=== PATIENT | female | born 1960 | race Caucasian/White ===

== ENCOUNTER 2018-05-13 18:23 | Emergency (ER) | payer SELFPAY ==
[~2018-05-13] VITALS: Ht 172.7 cm; Wt 70.3 kg
[~2018-05-13 18:23] MED LIST: AGM875T PO; SULF-222 PO; TRAM50TA2 PO; TRAZ150T42 PO
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
[2018-05-13] MEDS ORDERED: IBUPROFEN 800 MG (MOTRIN) TAB PO ONE (18:45)
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
[2018-05-13 19:36] VITALS: BP 123/96
== END 2018-05-13 19:36 | disposition home or self-care (01) ==
LOC: ER 18:23
DX: S52.132A Displaced fracture of neck of left radius, initial encounter for closed fracture (principal); F12.10 Cannabis abuse, uncomplicated; Z87.19 Personal history of other diseases of the digestive system; Z88.8 Allergy status to other drugs, medicaments and biological substances; Z88.5 Allergy status to narcotic agent; W18.39XA Other fall on same level, initial encounter
CPT/HCPCS: 73080

== ENCOUNTER 2018-05-16 14:18 | Emergency (ER) | payer SELFPAY ==
[~2018-05-16] VITALS: Ht 172.7 cm; Wt 71.7 kg
--- OUTSIDE RECORDS SUMMARY | 2018-05-16 14:27 | XMS REPORT ---
Author Author DARIEN WOLFE Organization [facility] Address [address] [place] [address] Care Team Providers Care Performing Arts Technicians Name Role Phone DARIEN WOLFE Unavailable PROBLEMS Type Condition ICD9-CM Code UBO50-YG Code Onset Dates Condition Status SNOMED Code Problem Contact dermatitis L25.9 Active 07123729 Problem History of scoliosis Z87.39 Active 996887490 Problem Insomnia G47.00 Active 173892700 Problem Pain in right knee M25.561 Active 78037819 Problem Other chronic pain G89.29 Active 90005858 Problem Routine health maintenance Z00.00 Active 102057445 Problem Screening for diabetes mellitus Z13.1 Active 224840656 Problem Elevated hemoglobin A1c R73.09 Active 840304287 Problem Actinic keratosis L57.0 Active 035349021 Problem Hx of cannabis abuse Z87.898 Active 569075059195057 Problem Diverticulosis K57.90 Active 464460682 Problem Insomnia, unspecified type G47.00 Active 467253363 Problem History of methamphetamine abuse Z87.898 Active 309581407 Problem Nipple discharge N64.52 Active 82985968 Problem Hx of diverticulitis of colon Z87.19 Active 852955555 Problem Fibrocystic breast changes N60.19 Active 37845072 ALLERGIES Unknown Allergies SOCIAL HISTORY No smoking Hx information available PLAN OF CARE VITAL SIGNS MEDICATIONS Unknown Medications RESULTS No Results PROCEDURES No Known procedures IMMUNIZATIONS No Known Immunizations
--- OUTSIDE RECORDS SUMMARY | 2018-05-16 14:27 | XMS REPORT ---
Author Author DARIEN WOLFE Organization [facility] Address [address] [place] [address] Care Team Providers Care Coat Joiner Lockstitch Name Role Phone DARIEN WOLFE Unavailable PROBLEMS Type Condition ICD9-CM Code HEV00-IQ Code Onset Dates Condition Status SNOMED Code Problem Contact dermatitis L25.9 Active 26636070 Problem History of scoliosis Z87.39 Active 185282592 Problem Insomnia G47.00 Active 917663457 Problem Pain in right knee M25.561 Active 21807736 Problem Other chronic pain G89.29 Active 61300557 Problem Routine health maintenance Z00.00 Active 711665231 Problem Screening for diabetes mellitus Z13.1 Active 276269874 Problem Elevated hemoglobin A1c R73.09 Active 912740792 Problem Actinic keratosis L57.0 Active 551993194 Assessment Pain in right knee M25.561 23 Jun, 2016 Active 265891489611493 Problem Hx of cannabis abuse Z87.898 Active 501974186583926 Assessment Elevated LDL cholesterol level E78.0 Jun, Active 013361128 Problem Diverticulosis K57.90 Active 280465482 Problem Insomnia, unspecified type G47.00 Active 686487194 Problem History of methamphetamine abuse Z87.898 Active 631153961 Problem Nipple discharge N64.52 Active 55885833 Problem Hx of diverticulitis of colon Z87.19 Active 614549274 Problem Fibrocystic breast changes N60.19 Active 74138262 ALLERGIES Unknown Allergies SOCIAL HISTORY No smoking Hx information available PLAN OF CARE VITAL SIGNS MEDICATIONS Unknown Medications RESULTS Name Result Date Reference Range A1C 2016-07-18 Hemoglobin A1c 5.9 4.8-5.6 LIPID PANEL 2016-07-18 Cholesterol, Total 188 100-199 Triglycerides 84 0-149 HDL Cholesterol 54 >39 VLDL Cholesterol Gurpreet 17 5-40 LDL Cholesterol Calc 117 0-99 Comment: PROCEDURES Procedure Date Ordered Related Diagnosis Body Site GLYCATED HEMOGLOBIN TEST Jul 18, 2016 LIPID PANEL Jul 18, 2016 VENIPUNCT, ROUTINE* Jul 18, 2016 IMMUNIZATIONS No Known Immunizations
--- OUTSIDE RECORDS SUMMARY | 2018-05-16 14:27 | XMS REPORT ---
Author Author DARIEN WOLFE Organization [facility] Address [address] [place] [address] Care Team Providers Care Marble Setter Name Role Phone YANTEH DARIEN Unavailable PROBLEMS Type Condition ICD9-CM Code SQR10-AN Code Onset Dates Condition Status SNOMED Code Problem Marijuana use, episodic F12.90 Active 057027111 Problem Elevated LDL cholesterol level E78.00 Active 470954056 Problem Elevated hemoglobin A1c R73.09 Active 117407036 Problem Insomnia, unspecified type G47.00 Active 933519001 Problem Other chronic pain G89.29 Active 60773356 Problem Pain in right knee M25.561 Active 40481466 ALLERGIES Substance Reaction Event Type Date Status Opioids - Morphine Analogues Unknown Non Drug Allergy Oct, Active ENCOUNTERS Encounter Location Date Diagnosis [facility] [id number] [place] [address] February, Elevated hemoglobin A1c R73.09 ; Elevated LDL cholesterol level E78.00 ; Insomnia, unspecified type G47.00 ; Pain in right knee M25.561 and Marijuana use, episodic F12.90 [facility] [id number] [place] [address] Oct, Bronchitis J40 ; Elevated hemoglobin A1c R73.09 and Elevated LDL cholesterol level E78.00 [facility] [id number] [place] [address]58[address]90 Jun, Elevated hemoglobin A1c R73.09 and Elevated LDL cholesterol level E78.00 [facility] [id number] [place] [address]35[address]- 1419 Jun, Elevated hemoglobin A1c R73.09 ; Elevated LDL cholesterol level E78.00 and Insomnia, unspecified type G47.00 [facility] [id number] [place] [address] 13257- 4733 Jun, Elevated hemoglobin A1c R73.09 ; Insomnia, unspecified type G47.00 ; Elevated LDL cholesterol level E78.00 and Other chronic pain G89.29 [facility] [address] [address] Jun, [facility] [id number] [place] [address] May, Lower abdominal pain R10.30 and Cystitis N30.90 [facility] [id number] [place] [address]45- [address] Sep, Lipoma of back D17.1 [place] [id number] [place] [address] 19874- 266[address] Sep, Lipoma of back D17.1 ; Insomnia G47.00 ; Pain in right knee M25.561 ; Elevated hemoglobin A1c R73.09 and Elevated LDL cholesterol level E78.00 [facility] [id number] [place] [address] Sep, Sebaceous cyst L72.3 [place] [id number] [place] [address] 67172- [address]207 Sep, [facility] [id number] [place] [address] 28556- 6952 Jul, [place] [id number] [place] [address]- [address] 30 Jun, 2016 [place] [id number] [place] [address] 30275- 57[address] Jun, Pain in right knee M25.561 ; Elevated hemoglobin A1c R73.09 and Elevated LDL cholesterol level E78.0 [facility] [id number] [place] [address] 95998- 2605 Jun, Pain in right knee M25.561 ; Other chronic pain G89.29 ; Elevated hemoglobin A1c R73.09 and Elevated LDL cholesterol level E78.0 [place] [id number] [place] [address]- [address] 14 Mar, 2016 Insomnia, unspecified type G47.00 and Actinic keratosis L57.0 [place] [id number] [place] [address]52- 1232 Jan, [address] [address] Jan, Routine health maintenance Z00.00 ; Screening for diabetes mellitus Z13.1 and History of scoliosis Z87.[address] [address] Dec, Routine health maintenance Z00.00 ; Screening for diabetes mellitus Z13.1 ; History of scoliosis Z87.39 ; Insomnia G47.00 ; Contact dermatitis L25.9 ; Fibrocystic breast changes N60.19 and Nipple discharge N64.52 [place] [id number] [place] [address]- [address] Nov, [place] [id number] [place] [address]273- 9167 Oct, Insomnia, unspecified type G47.00 [place] [id number] [place] [address]179- [address] Aug, Insomnia, unspecified type G47.00 ; History of methamphetamine abuse Z87.898 ; Hx of cannabis abuse Z87.898 ; Diverticulosis K57.90 ; Hx of diverticulitis of colon Z87.19 and Hordeolum eyelid, internal H00.029 [facility] [address] [place] [address]42 [address] Aug, Hordeolum eyelid, internal H00.029 [place] [id number] [place] [address] 24957- 8700 Apr, Lymphadenopathy 785.[address] [address] Apr, Lymphadenopathy 785.6 [facility] [place] [facility] [address] [id number] [place] [address] February, [facility] [place] [facility] [address] [id number] [place] [address] Jan, [facility] [place] [facility] [address] [id number] [place] [address] 9876 Jan, [facility] [place] [facility] [address] [id number] [place] [address] 3499 Jul, [facility] [place] [facility] [address] [id number] [place] [address] Jul, [facility] [place] [facility] [address] [id number] [place] [address] 9559 Jul, [facility] [place] [facility] [address] [id number] [place] [address] 18[address] Jul, [facility] [place] [facility] [address] [id number] [place] [address] Jul, [facility] [place] [facility] [address] [id number] [place] [address] 4247 Jul, [facility] [place] [facility] [address] [id number] [place] [address] Jul, [facility] [place] [facility] [address] [id number] [place] [address] Jul, [facility] [place] [facility] [address] [id number] [place] [address] Jun, [facility] [place] [facility] [address] [id number] [place] [address]- 6035 Jun, [facility] [place] [facility] [address] [id number] [place] [address]- 2482 Jun, [facility] [place] [facility] [address] [id number] [place] [address]- 7408 Jun, [facility] [place] [facility] [address] [id number] [place] [address]- 3926 19 Jun, 2013 [facility] [place] [facility] [address] [id number] [place] [address] 2546 19 Jun, 2013 [facility] [place] [facility] [address] [id number] [place] [address] 2546 Jun, 2013 [facility] [place] [facility] [address] [id number] [place] [address] 2546 Jun, 2013 [facility] [place] [facility] [address] [id number] [place] [address] 2546 16 Jun, 2013 [facility] [place] [facility] [address] [id number] [place] [address]- 3105 Jun, 2013 [facility] [place] [facility] [address] [id number] [place] [address]- 3174 Jun, 2013 [facility] [place] [facility] [address] [id number] [place] [address]- 8742 Jun, 2013 [facility] [place] [facility] [address] [id number] [place] [address]- 8134 May, [facility] [place] [facility] [address] [id number] [place] [address]- 3786 May, [facility] [place] [facility] [address] [id number] [place] [address]- 8830 May, [facility] [place] [facility] [address] [id number] [place] [address] 2546 May, [facility] [place] [facility] [address] [id number] [place] [address]- 2542 May, [facility] [place] [facility] [address] [id number] [place] [address]- 9284 May, [facility] [place] [facility] [address] [id number] [place] [address]- 2542 May, [facility] [place] [facility] [address] [id number] [place] [address]- 2461 May, [facility] [place] [facility] [address] [id number] [place] [address]- 4205 May, [facility] [place] [facility] [address] [id number] [place] [address]- 5074 May, [facility] [place] [facility] [address] [id number] [place] [address]- 2608 May, [facility] [place] [facility] [address] [id number] [place] [address]- 5126 May, [facility] [place] [facility] [address] [id number] [place] [address]- 1998 May, [facility] [place] [facility] [address] [id number] [place] [address]- 5170 May, [facility] [place] [facility] [address] [id number] [place] [address]- 5326 Apr, [facility] [place] [facility] [address] [id number] [place] [address]- 4577 Apr, [facility] [place] [facility] [address] [id number] [place] [address]- 9706 Apr, [facility] [place] [facility] [address] [id number] [place] [address]- 3994 Apr, [facility] [place] [facility] [address] [id number] [place] [address]- 7095 Apr, [facility] [place] [facility] [address] [id number] [place] [address]- 2525 Apr, [facility] [place] [facility] [address] [id number] [place] [address]- 4[address] Apr, [facility] [place] [facility] [address] [id number] [place] [address]- 5283 Apr, [facility] [place] [facility] [address] [id number] [place] [address]- 1795 Apr, [facility] [place] [facility] [address] [id number] [place] [address]- 2546 Apr, [facility] [address] [facility] [id number] [place] [address] 2546 Apr, [facility] [address] [facility] [id number] [place] [address]- 25[address] Dec, [facility] [address] [facility] [id number] [place] [address] 2546 Dec, [facility] [address] [facility] [id number] [place] [address]- [address] Nov, [facility] [address] [facility] [id number] [place] [address]- [address] Nov, IMMUNIZATIONS No Known Immunizations SOCIAL HISTORY Never Assessed REASON FOR VISIT Insomnia follow up, Diabetes follow up isaura song, Congestion with cough x 3 days , denies fever or body aches PLAN OF CARE Activity Details Follow Up 3 Months, prn Reason:CHM VITAL SIGNS Height 69 in 2017-11-05 Weight 155 lbs 2017-11-05 Temperature 98.3 degrees Fahrenheit 2017-11-05 Heart Rate 74 bpm 2017-11-05 Respiratory Rate 20 2017-11-05 Oximetry 97 % 2017-11-05 BMI 22.89 kg/m2 2017-11-05 Blood pressure systolic 116 mmHg 2017-11-05 Blood pressure diastolic 64 mmHg 2017-11-05 MEDICATIONS Medication Instructions Dosage Frequency Start Date End Date Duration Status PredniSONE 20 mg Orally Once a day 1 tablet 24h Oct, Oct, 05 days Active Trazodone HCl 100MG TAKE ONE TABLET BY MOUTH ONCE DAILY AT BEDTIME 90 Active Atorvastatin Calcium 10 mg Orally Once a day, avoid grapefruit juice 1 tablet Jun, 90 days Active Melatonin 10 MG Orally Once a day 1 tablet at bedtime as needed with food 24h Active Triamcinolone Acetonide 0.5 % Externally Twice a day apply small amount to bilat feet twice a day 12h 31 Dec, 2015 Not-Taking ProAir HFA 108 (90 Base) MCG/ACT Inhalation every 6 hrs 2 puffs as needed 6h Oct, 12 months Active Triamcinolone Acetonide 0.1 % Externally Twice a day 1 application to affected area 12h 14 Mar, 2016 Active MetFORMIN HCl ER 500 MG Orally twice a day 1 tablet with evening meal x 7days then one tablet twice daily with meals 12h 07 Jan, 2016 90 days Active Azithromycin 250 MG Orally Once a day 2 tablets on the first day, then 1 tablet daily for 4 days 24h 11 Oct, 2017 Oct, 5 day(s) Active RESULTS Name Result Date Reference Range A1C (IN HOUSE) 2017-11-05 A1C IN HOUSE 5.8 4.3 - 5.6 % Previous A1c 5.8 Lot [id number] Exp date 07/2019 PROCEDURES Procedure Date Ordered Result Body Site GLYCATED HEMOGLOBIN TEST Nov 05, 2017 MEASURE BLOOD OXYGEN LEVEL Nov 05, 2017 INSTRUCTIONS MEDICATIONS ADMINISTERED No Known Medications MEDICAL (GENERAL) HISTORY Type Description Date Medical History diverticulitis Medical History Unspecified myalgia and myositis Medical History Nondependent cannabis abuse, unspecified Medical History Condyloma acuminatum Medical History Anxiety state, unspecified Medical History Unspecified renal failure Medical History History of methamphetamine abuse Medical History Hx of cannabis abuse Surgical History cholecystectomy Surgical History appendectomy Surgical History left ankle ganglion cyst removal Surgical History colonoscopy 2013 Hospitalization History Surgeries only
--- OUTSIDE RECORDS SUMMARY | 2018-05-16 14:28 | XMS REPORT ---
Author Author MOIRA MCGUIRE Organization [facility] Address [address] [place] [address] Care Team Providers Care Human Resources Mgr Name Role Phone MOIRA MCGUIRE Unavailable PROBLEMS Type Condition ICD9-CM Code VHL50-IB Code Onset Dates Condition Status SNOMED Code Problem Insomnia, unspecified type G47.00 Active 573875207 Problem History of scoliosis Z87.39 Active 980927485 Problem Fibrocystic breast changes N60.19 Active 54332951 Problem Elevated LDL cholesterol level E78.00 Active 382465326 Problem Elevated hemoglobin A1c R73.09 Active 678815449 Problem Actinic keratosis L57.0 Active 636798445 Problem Contact dermatitis L25.9 Active 64549263 Problem Other chronic pain G89.29 Active 77146233 Problem Pain in right knee M25.561 Active 58205560 ALLERGIES Substance Reaction Event Type Date Status Opioids - Morphine Analogues Unknown Non Drug Allergy May, Active ENCOUNTERS Encounter Location Date Diagnosis [place] [id number] [place] [address] 36980- 0253 February, [facility] [address] [place] [id number] [place] [address] 80025- 5056 Oct, Bronchitis J40 ; Elevated hemoglobin A1c R73.09 and Elevated LDL cholesterol level E78.00 [facility] [address] [place] [address] 83201- 1005 Jun, Elevated hemoglobin A1c R73.09 and Elevated LDL cholesterol level E78.00 [place] [address] [place] [id number] [place] [address] 89148- 6480 Jun, Elevated hemoglobin A1c R73.09 ; Elevated LDL cholesterol level E78.00 and Insomnia, unspecified type G47.00 [facility] [address] [place] [id number] [place] [address] 65561- 8942 Jun, Elevated hemoglobin A1c R73.09 ; Insomnia, unspecified type G47.00 ; Elevated LDL cholesterol level E78.00 and Other chronic pain G89.29 [place] [address] [place] [id number] [place] [address] 16178- 8789 Jun, [facility] [address] [place] [id number] [place] [address] 77142 -7922 May, Lower abdominal pain R10.30 and Cystitis N30.90 [place] [address] [place] [id number] [place] [address] 69348- 3257 Sep, Lipoma of back D17.1 [place] [address] [place] [id number] [place] [address] 47114- 3747 Sep, Lipoma of back D17.1 ; Insomnia G47.00 ; Pain in right knee M25.561 ; Elevated hemoglobin A1c R73.09 and Elevated LDL cholesterol level E78.00 [facility] [address] [id number] [place] [address] 32866 -9397 Sep, Sebaceous cyst L72.3 [place] [address] [place] [id number] [place] [address] 76839- 9985 Sep, [place] [address] [place] [id number] [place] [address] 56618- 0580 Jul, [place] [address] [place] [id number] [place] [address] 71457- 3066 Jun, [place] [address] [place] [id number] [place] [address] 83084- 5563 Jun, Pain in right knee M25.561 ; Elevated hemoglobin A1c R73.09 and Elevated LDL cholesterol level E78.0 [place] [address] [place] [address] 29762- 2312 Jun, Pain in right knee M25.561 ; Other chronic pain G89.29 ; Elevated hemoglobin A1c R73.09 and Elevated LDL cholesterol level E78.0 [place] [address] [place] [id number] [place] [address] 17395- 9727 14 Mar, 2016 Insomnia, unspecified type G47.00 and Actinic keratosis L57.0 [place] [id number] [place] [address] 25838- 1867 Jan, [address] 66251- 7146 Jan, Routine health maintenance Z00.00 ; Screening for diabetes mellitus Z13.1 and History of scoliosis Z87.[address] 24711- 8140 Dec, Routine health maintenance Z00.00 ; Screening for diabetes mellitus Z13.1 ; History of scoliosis Z87.39 ; Insomnia G47.00 ; Contact dermatitis L25.9 ; Fibrocystic breast changes N60.19 and Nipple discharge N64.[address] 67490- 9716 Nov, [address] 78272- 3500 Oct, Insomnia, unspecified type G47.00 [place] [id number] [place] [address] 13057- 6261 Aug, Insomnia, unspecified type G47.00 ; History of methamphetamine abuse Z87.898 ; Hx of cannabis abuse Z87.898 ; Diverticulosis K57.90 ; Hx of diverticulitis of colon Z87.19 and Hordeolum eyelid, internal H00.029 [facility] [address] [place] [address] 64514 -1791 Aug, Hordeolum eyelid, internal H00.029 [place] [address] [place] [id number] [place] [address] 66025- 6569 Apr, Lymphadenopathy 785.[address] 84787- 7878 Apr, Lymphadenopathy 785.6 [facility] [place] [facility] [address] [id number] [place] [address]- 0580 February, [facility] [place] [facility] [address] [id number] [place] [address]- 2886 14 Jan, 2015 [facility] [place] [facility] [address] [id number] [place] [address]- 8346 Jan, [facility] [place] [facility] [address] [id number] [place] [address]- 0033 Jul, [facility] [place] [facility] [address] [id number] [place] [address]- 3926 Jul, [facility] [place] [facility] [address] [id number] [place] [address]- 2117 Jul, [facility] [place] [facility] [address] [id number] [place] [address]- 5916 Jul, [facility] [place] [facility] [address] [id number] [place] [address]- 1310 Jul, [facility] [place] [facility] [address] [id number] [place] [address]- 0906 Jul, [facility] [place] [facility] [address] [id number] [address]- 3774 Jul, [facility] [place] [facility] [address] [id number] [place] [address]- 4260 Jul, [facility] [place] [facility] [address] [id number] [address]- 8665 Jun, [facility] [place] [facility] [address] [id number] [place] [address]- 5972 Jun, [facility] [place] [facility] [address] [id number] [place] [address]- 3263 Jun, [facility] [place] [facility] [address] [id number] [place] [address]- 8704 Jun, [facility] [place] [facility] [address] [id number] [place] [address]- 3344 19 Jun, 2013 [facility] [place] [facility] [address] [id number] [place] [address]- 0886 19 Jun, 2013 [facility] [place] [facility] [address] [id number] [place] [address]- 6356 Jun, 2013 [facility] [place] [facility] [address] [id number] [place] [address]- 2286 Jun, 2013 [facility] [place] [facility] [address] [id number] [place] [address]- 8306 16 Jun, 2013 [facility] [place] [facility] [address] [id number] [place] [address]- 3304 Jun, 2013 [facility] [place] [facility] [address] [id number] [place] [address]- 0609 Jun, 2013 [facility] [place] [facility] [address] [id number] [place] [address]- 3467 Jun, 2013 [facility] [place] [facility] [address] [id number] [place] [address]- 1618 May, [facility] [place] [facility] [address] [id number] [place] [address]- 8061 May, [facility] [place] [facility] [address] [id number] [place] [address]- 8910 May, [facility] [place] [facility] [address] [id number] [place] [address]- 1309 May, [facility] [place] [facility] [address] [id number] [place] [address]- 2544 May, [facility] [place] [facility] [address] [id number] [place] [address]- 6287 May, [facility] [place] [facility] [address] [id number] [place] [address]- 6402 May, [facility] [place] [facility] [address] [id number] [place] [address]- 5460 May, [facility] [place] [facility] [address] [id number] [place] [address]- 8818 May, [facility] [place] [facility] [address] [id number] [place] [address]- 0358 May, [facility] [place] [facility] [address] [id number] [place] [address]- 2765 May, [facility] [place] [facility] [address] [id number] [place] [address]- 3151 May, [facility] [place] [facility] [address] [id number] [place] [address]- 8945 May, [facility] [place] [facility] [address] [id number] [place] [address]- 2114 May, [facility] [place] [facility] [address] [id number] [place] [address]- 7458 Apr, [facility] [place] [facility] [address] [id number] [place] [address]- 5722 Apr, [facility] [place] [facility] [address] [id number] [place] [address]- 6357 Apr, [facility] [place] [facility] [address] [id number] [place] [address]- 1428 Apr, [facility] [place] [facility] [address] [id number] [place] [address]- 4012 Apr, [facility] [place] [facility] [address] [id number] [place] [address]- 3512 Apr, [facility] [place] [facility] [address] [id number] [place] [address]- 5947 Apr, [facility] [place] [facility] [address] [id number] [place] [address]- 3466 Apr, [facility] [place] [facility] [address] [id number] [place]657 Apr, [facility] [place] [facility] [address] [id number] [place] [address]- 9635 Apr, [facility] [address] [facility] [id number] [place] [address]- 7738 Apr, [facility] [address] [facility] [id number], [place] [address]- 0036 Dec, [facility] [address] [facility] [id number][place] [address]- 7216 Dec, [facility] [address] [facility] [id number][place] [address]- 8226 Nov, [facility] [address] [facility] [id number][place] [address]- 5866 Nov, IMMUNIZATIONS No Known Immunizations SOCIAL HISTORY Never Assessed REASON FOR VISIT Possible UTI. Patient states she is having pain in her bladder. JAKUB Varela. PLAN OF CARE Activity Details Follow Up prn Reason: VITAL SIGNS Height 69 in 2017-06-19 Weight 153 lbs 2017-06-19 Temperature 98.1 degrees Fahrenheit 2017-06-19 Heart Rate 72 bpm 2017-06-19 Respiratory Rate 16 2017-06-19 BMI 22.59 kg/m2 2017-06-19 Blood pressure systolic 122 mmHg 2017-06-19 Blood pressure diastolic 74 mmHg 2017-06-19 MEDICATIONS Medication Instructions Dosage Frequency Start Date End Date Duration Status Triamcinolone Acetonide 0.1 % Externally Twice a day 1 application to affected area 12h Mar, Active Bactrim DS 800-160 MG Orally 2 times a day 1 tablet May,Jun 07 days Active Trazodone HCl 100MG TAKE ONE TABLET BY MOUTH ONCE DAILY AT BEDTIME 90 Active Atorvastatin Calcium 10 mg Orally Once a day, avoid grapefruit juice 1 tablet Jun, 90 days Active MetFORMIN HCl ER 500 MG Orally twice a day 1 tablet with evening meal x 7days then one tablet twice daily with meals h Jan, 90 days Active trazodone 100 MG orally Once a day at bedtime 1 tablet Apr, Jun, 90 days Active Melatonin 10 MG Orally Once a day 1 tablet at bedtime as needed with food 24h Active RESULTS No Results PROCEDURES Procedure Date Ordered Result Body Site URINALYSIS, AUTO, W/O SCOPE Jun 19, 2017 INSTRUCTIONS MEDICATIONS ADMINISTERED No Known Medications [...]
--- OUTSIDE RECORDS SUMMARY | 2018-05-16 14:28 | XMS REPORT ---
Author Author DARIEN WOLFE Organization [facility] Address [address] [place] [address] Care Team Providers Care Glass Carrier Name Role Phone DARIEN WOLFE Unavailable PROBLEMS Type Condition ICD9-CM Code BKB16-BA Code Onset Dates Condition Status SNOMED Code Problem History of scoliosis Z87.39 Active 087376491 Problem Insomnia G47.00 Active 224699082 Problem Contact dermatitis L25.9 Active 20470614 Problem Pain in right knee M25.561 Active 56846355 Problem Other chronic pain G89.29 Active 62068047 Problem Screening for diabetes mellitus Z13.1 Active 454938703 Problem Nipple discharge N64.52 Active 30078469 Problem Elevated hemoglobin A1c R73.09 Active 972927910 Problem Actinic keratosis L57.0 Active 067307844 Problem Insomnia, unspecified type G47.00 Active 616194452 Problem Hx of cannabis abuse Z87.898 Active 920988243886225 Problem Hx of diverticulitis of colon Z87.19 Active 391446622 Problem Diverticulosis K57.90 Active 209036400 Problem Fibrocystic breast changes N60.19 Active 77311408 Problem History of methamphetamine abuse Z87.898 Active 216071376 Problem Routine health maintenance Z00.00 Active 295675118 ALLERGIES No Known Allergies SOCIAL HISTORY No smoking Hx information available PLAN OF CARE VITAL SIGNS MEDICATIONS No Known Medications RESULTS No Results PROCEDURES Procedure Date Ordered Related Diagnosis Body Site SUTURE REMOVAL 2016-10-21 N/A REMOV SUTS; NOT WHO CLOS WND Oct 21, 2016 IMMUNIZATIONS No Known Immunizations
--- OUTSIDE RECORDS SUMMARY | 2018-05-16 14:28 | XMS REPORT ---
Author Author DARIEN WOLFE Organization [facility] Address [address] [place] [address] Care Team Providers Care [employer] Librarian Name Role Phone DARIEN WOLFE Unavailable PROBLEMS Type Condition ICD9-CM Code CTB11-KC Code Onset Dates Condition Status SNOMED Code Problem Insomnia, unspecified type G47.00 Active 598639883 Problem History of scoliosis Z87.39 Active 365413403 Problem Fibrocystic breast changes N60.19 Active 14906151 Problem Elevated LDL cholesterol level E78.00 Active 605545952 Problem Elevated hemoglobin A1c R73.09 Active 623632347 Problem Actinic keratosis L57.0 Active 559610541 Problem Contact dermatitis L25.9 Active 28782211 Problem Other chronic pain G89.29 Active 26787924 Problem Pain in right knee M25.561 Active 46345227 ALLERGIES No Information ENCOUNTERS Encounter Location Date Diagnosis [place] [id number] [address] February, [facility] [address] [place] [id number] [place] [address] 03486- 7941 Oct, Bronchitis J40 ; Elevated hemoglobin A1c R73.09 and Elevated LDL cholesterol level E78.00 [place] [address] [place] [id number] [place] [address] 21400- 2132 Jun, Elevated hemoglobin A1c R73.09 and Elevated LDL cholesterol level E78.00 [place] [address] [place] [id number] [place] [address] 29413- 6057 Jun, Elevated hemoglobin A1c R73.09 ; Elevated LDL cholesterol level E78.00 and Insomnia, unspecified type G47.00 [facility] [address] [place] [address] 31782- 9352 Jun, Elevated hemoglobin A1c R73.09 ; Insomnia, unspecified type G47.00 ; Elevated LDL cholesterol level E78.00 and Other chronic pain G89.29 [place] [address] [place] [id number] [place] [address] 07861- 2204 Jun, [facility] [address] [place] [id number] [place] [address] 56273 -4585 May, Lower abdominal pain R10.30 and Cystitis N30.90 [place] [address] [place] [id number] [place] [address] 37742- 8276 Sep, Lipoma of back D17.1 [place] [address] [place] [id number] [place] [address] 47824- 8130 Sep, Lipoma of back D17.1 ; Insomnia G47.00 ; Pain in right knee M25.561 ; Elevated hemoglobin A1c R73.09 and Elevated LDL cholesterol level E78.00 [facility] [address] [place] [id number] [place] [address] 83356 -6199 Sep, Sebaceous cyst L72.3 [place] [address] [place] [id number] [place] [address] 25469- 9296 Sep, [place] [address] [place] [id number] [place] [address] 21200- 7494 Jul, [place] [address] [place] [id number] [place] [address] 11768- 0515 Jun, [place] [address] [place] [id number] [place] [address] 62583- 5226 Jun, Pain in right knee M25.561 ; Elevated hemoglobin A1c R73.09 and Elevated LDL cholesterol level E78.0 [place] [address] [place] [id number] [place] [address] 34842- 3825 Jun, Pain in right knee M25.561 ; Other chronic pain G89.29 ; Elevated hemoglobin A1c R73.09 and Elevated LDL cholesterol level E78.0 [place] [address] [place] [id number] [place] [address] 69027- 5204 Mar, Insomnia, unspecified type G47.00 and Actinic keratosis L57.[address] [address]- 7525 Jan, [address] 72789152- 4433 Jan, Routine health maintenance Z00.00 ; Screening for diabetes mellitus Z13.1 and History of scoliosis Z87.39 [place] [address] 94896- 1366 Dec, Routine health maintenance Z00.00 ; Screening for diabetes mellitus Z13.1 ; History of scoliosis Z87.39 ; Insomnia G47.00 ; Contact dermatitis L25.9 ; Fibrocystic breast changes N60.19 and Nipple discharge N64.[address] 45398- 3289 Nov, [address] 53396- 5002 Oct, Insomnia, unspecified type G47.[address] 48548- 3481 Aug, Insomnia, unspecified type G47.00 ; History of methamphetamine abuse Z87.898 ; Hx of cannabis abuse Z87.898 ; Diverticulosis K57.90 ; Hx of diverticulitis of colon Z87.19 and Hordeolum eyelid, internal H00.029 [facility] [address] [place] [address] 81630 -9829 Aug, Hordeolum eyelid, internal H00.029 [place] [id number] [place] [address] 86877- 5482 Apr, Lymphadenopathy 785.[address] 28804- 0014 Apr, Lymphadenopathy 785.[address] [place] [address]- 7346 February, [facility] [place] [facility] [address] [id number] [place] [address]- 2931 14 Jan, 2015 [facility] [place] [facility] [address] [id number] [place] [address]- 8454 13 Jan, 2015 [facility] [place] [facility] [address] [id number] [place] [address]- 0520 Jul, [facility] [place] [facility] [address] [id number] [place] [address]- 3792 Jul, [facility] [place] [facility] [address] [id number] [place] [address]- 4246 Jul, [facility] [place] [facility] [address] [id number] [place] [address]- 2329 Jul, [facility] [place] [facility] [address] [id number] [place] [address]- 1843 Jul, [facility] [place] [facility] [address] [id number] [place] [address]- 3012 Jul, [facility] [place] [facility] [address] [id number] [place] [address]- 5821 Jul, [facility] [place] [facility] [address] [id number] [place] [address]- 5963 Jul, [facility] [place] [facility] [address] [id number] [place] [address]- 7918 22 Jun, 2013 [facility] [place] [facility] [address] [id number] [place] [address]- 2903 22 Jun, 2013 [facility] [place] [facility] [address] [id number] [place] [address]- 7627 22 Jun, 2013 [facility] [place] [facility] [address] [id number] [place] [address]- 6373 22 Jun, 2013 [facility] [place] [facility] [address] [id number] [place] [address]- 9764 19 Jun, 2013 [facility] [place] [facility] [address] [id number] [place] [address] 2546 19 Jun, 2013 [facility] [place] [facility] [address] [id number] [place] [address] 2546 Jun, 2013 [facility] [place] [facility] [address] [id number] [place] [address] 2546 Jun, 2013 [facility] [place] [facility] [address] [id number] [place] [address] 2546 16 Jun, 2013 [facility] [place] [facility] [address] [id number] [place] [address] 2546 16 Jun, 2013 [facility] [place] [facility] [address] [id number] [place] [address]- 9916 Jun, 2013 [facility] [place] [facility] [address] [id number] [place] [address]- 4945 Jun, 2013 [facility] [place] [facility] [address] [id number] [place] [address]- 1372 May, [facility] [place] [facility] [address] [id number] [place] [address]- 4200 May, [facility] [place] [facility] [address] [id number] [place] [address]- 1269 May, [facility] [place] [facility] [address] [id number] [place] [address] 2544 May, [facility] [place] [facility] [address] [id number] [place] [address]- 2548 May, [facility] [place] [facility] [address] [id number] [place] [address] 2541 May, [facility] [place] [facility] [address] [id number] [place] [address] 2546 May, [facility] [place] [facility] [address] [id number] [place] [address]- 2549 May, [facility] [place] [facility] [address] [id number] [place] [address]- 2496 May, [facility] [place] [facility] [address] [id number] [place] [address]- 6599 May, [facility] [place] [facility] [address] [id number] [place] [address]- 2984 May, [facility] [place] [facility] [address] [id number] [place] [address]- 9730 May, [facility] [place] [facility] [address] [id number] [place] [address]- 9234 May, [facility] [place] [facility] [address] [id number] [place] [address]- 6142 May, [facility] [place] [facility] [address] [id number] [place] [address]- 5350 Apr, [facility] [place] [facility] [address] [id number] [place] [address]- 5762 Apr, [facility] [place] [facility] [address] [id number] [place] [address]- 4498 Apr, [facility] [place] [facility] [address] [id number] [place] [address]- 5380 Apr, [facility] [place] [facility] [address] [id number] [place] [address]- 4542 Apr, [facility] [place] [facility] [address] [id number] [place] [address]- 5174 Apr, [facility] [place] [facility] [address] [id number] [place] [address]- 2732 Apr, [facility] [place] [facility] [address] [id number] [place] [address]- 2498 Apr, [facility] [place] [facility] [address] [id number] [place] [address]- 2855 Apr, [facility] [place] [facility] [address] [id number] [place] [address] Apr, [facility] [place] [facility] [address] [id number] [place] [address] Apr, [facility] [address] [facility] [id number] [address] Dec, [facility] [address] [facility] [id number] [address] Dec, [facility] [address] [facility] [id number] [address] Nov, [facility] [address] [facility] [id number] [address] Nov, IMMUNIZATIONS No Known Immunizations SOCIAL HISTORY Never Assessed REASON FOR VISIT Refill request/Appt Scheduled PLAN OF CARE VITAL SIGNS MEDICATIONS Unknown Medications RESULTS No Results PROCEDURES No Known procedures INSTRUCTIONS MEDICATIONS ADMINISTERED No Known Medications MEDICAL [...]
--- OUTSIDE RECORDS SUMMARY | 2018-05-16 14:28 | XMS REPORT ---
Author Author DARIEN WOLFE Organization [employer] Address Unknown Phone Unavailable Care Team Providers Care Detective Supervisor Name Role Phone DARIEN WOLFE CP Unavailable Allergies No Known Allergies Problems Problem Type Condition Code Onset Dates Condition Status Problem Fibrocystic breast changes N60.19 Active Problem Insomnia G47.00 Active Problem Contact dermatitis L25.9 Active Problem Other chronic pain G89.29 Active Problem Elevated hemoglobin A1c R73.09 Active Problem Pain in right knee M25.561 Active Problem Screening for diabetes mellitus Z13.1 Active Problem History of scoliosis Z87.39 Active Problem Actinic keratosis L57.0 Active Problem Routine health maintenance Z00.00 Active Problem Hx of diverticulitis of colon Z87.19 Active Problem Diverticulosis K57.90 Active Problem Hx of cannabis abuse Z87.898 Active Problem Insomnia, unspecified type G47.00 Active Problem History of methamphetamine abuse Z87.898 Active Problem Nipple discharge N64.52 Active Medications Medication Code System Code Instructions Start Date End Date Status Dosage Atorvastatin Calcium [facility] [address]-64 10 mg Orally Once a day, avoid grapefruit juice Jul 25, 2016 1 tablet Results No Known Results Summary Purpose [employer] Submission
--- OUTSIDE RECORDS SUMMARY | 2018-05-16 14:28 | XMS REPORT ---
Author Author DARIEN WOLFE Organization [facility] Address [address] [place] [address] Care Team Providers Care Speech Scientist Name Role Phone DARIEN WOLFE Unavailable PROBLEMS Type Condition ICD9-CM Code [id number] Code Onset Dates Condition Status SNOMED Code Problem Contact dermatitis L25.9 Active 03328921 Problem History of scoliosis Z87.39 Active 469159963 Problem Insomnia G47.00 Active 194305212 Problem Pain in right knee M25.561 Active 05537607 Problem Other chronic pain G89.29 Active 06720456 Problem Routine health maintenance Z00.00 Active 133191909 Problem Screening for diabetes mellitus Z13.1 Active 211196184 Problem Elevated hemoglobin A1c R73.09 Active 924927363 Problem Actinic keratosis L57.0 Active 579610890 Problem Hx of cannabis abuse Z87.898 Active 609419893477045 Problem Diverticulosis K57.90 Active 555096768 Problem Insomnia, unspecified type G47.00 Active 416018768 Problem History of methamphetamine abuse Z87.898 Active 379486435 Problem Nipple discharge N64.52 Active 31511175 Problem Hx of diverticulitis of colon Z87.19 Active 047035410 Problem Fibrocystic breast changes N60.19 Active 10369389 ALLERGIES Substance Reaction Event Type Date Status Opioids - Morphine Analogues Unknown Non Drug Allergy Sep, Active SOCIAL HISTORY No smoking Hx information available PLAN OF CARE Activity Details Follow Up 2 - 3 Days, prn Reason: VITAL SIGNS Height 69 in 2016-10-17 Weight 171.5 lbs 2016-10-17 Temperature 97.8 degrees Fahrenheit 2016-10-17 Heart Rate 64 bpm 2016-10-17 Respiratory Rate 18 2016-10-17 BMI 25.32 kg/m2 2016-10-17 Blood pressure systolic 119 mmHg 2016-10-17 Blood pressure diastolic 76 mmHg 2016-10-17 MEDICATIONS Medication Instructions Dosage Frequency Start Date End Date Duration Status Triamcinolone Acetonide 0.1 % Externally Twice a day 1 application to affected area 12h 14 Mar, 2016 Active Tramadol HCl 50 mg Orally every 6 hrs 1 tablet as needed 6h Sep, Oct, 28 days Active Trazodone HCl 100MG TAKE ONE TABLET BY MOUTH ONCE DAILY AT BEDTIME 90 Active Atorvastatin Calcium 10 mg Orally Once a day, avoid grapefruit juice 1 tablet Jun, 90 days Active MetFORMIN HCl ER 500 MG Orally twice a day 1 tablet with evening meal x 7days then one tablet twice daily with meals 12h 07 Jan, 2016 90 days Active trazodone 100 MG orally Once a day at bedtime 1 tablet Apr, Jun, 90 days Active Melatonin 10 MG Orally Once a day 1 tablet at bedtime as needed with food 24h Active RESULTS No Results PROCEDURES Procedure Date Ordered Related Diagnosis Body Site EXC BENIGN LEISON <0.5 cm (specify location) 2016-10-17 N/A Office Visit, Est Pt., Level 3 Oct 17, 2016 EXC TR-EXT B9 GIULIANA 0.5 < CM Oct 17, 2016 IMMUNIZATIONS No Known Immunizations
--- OUTSIDE RECORDS SUMMARY | 2018-05-16 14:28 | XMS REPORT ---
Author Author DARIEN WOLFE Organization [facility] Address [address] [place] [address] Care Team Providers Care Eyelet Cutter Name Role Phone DARIEN WOLFE Unavailable PROBLEMS Type Condition ICD9-CM Code PPI20-EC Code Onset Dates Condition Status SNOMED Code Problem Insomnia, unspecified type G47.00 Active 161973319 Problem History of scoliosis Z87.39 Active 322556617 Problem Fibrocystic breast changes N60.19 Active 10900076 Problem Elevated LDL cholesterol level E78.00 Active 852899057 Problem Elevated hemoglobin A1c R73.09 Active 376451346 Problem Actinic keratosis L57.0 Active 433224423 Problem Contact dermatitis L25.9 Active 57712148 Problem Other chronic pain G89.29 Active 88376590 Problem Pain in right knee M25.561 Active 55488486 ALLERGIES No Information ENCOUNTERS Encounter Location Date Diagnosis [place] [id number] [address] February, [facility] [address] [place] [id number] [place] [address] Oct, Bronchitis J40 ; Elevated hemoglobin A1c R73.09 and Elevated LDL cholesterol level E78.00 [place] [address] [place] [id number] [place] [address] Jun, Elevated hemoglobin A1c R73.09 and Elevated LDL cholesterol level E78.00 [place] [address] [place] [id number] [place] [address] Jun, Elevated hemoglobin A1c R73.09 ; Elevated LDL cholesterol level E78.00 and Insomnia, unspecified type G47.00 [facility] [address] [place] [address] Jun, Elevated hemoglobin A1c R73.09 ; Insomnia, unspecified type G47.00 ; Elevated LDL cholesterol level E78.00 and Other chronic pain G89.29 [place] [address] [place] [id number] [place] [address] Jun, [facility] [address] [id number] [place] [address] May, Lower abdominal pain R10.30 and Cystitis N30.90 [place] [address] [place] [id number] [place] [address] Sep, Lipoma of back D17.1 [place] [address] [place] [id number] [place] [address] Sep, Lipoma of back D17.1 ; Insomnia G47.00 ; Pain in right knee M25.561 ; Elevated hemoglobin A1c R73.09 and Elevated LDL cholesterol level E78.00 [facility] IN [facility] [address] [id number] [place] [address] Sep, Sebaceous cyst L72.3 [place] [address] [place] [id number] [place] [address] Sep, [place] [address] [place] [id number] [place] [address] Jul, [place] [address] [place] [id number] [place] [address] Jun, [place] [address] [place] [id number] [place] [address] Jun, Pain in right knee M25.561 ; Elevated hemoglobin A1c R73.09 and Elevated LDL cholesterol level E78.0 [place] [address] [place] [id number] [place] [address] Jun, Pain in right knee M25.561 ; Other chronic pain G89.29 ; Elevated hemoglobin A1c R73.09 and Elevated LDL cholesterol level E78.0 [place] [address] [place] [id number] [place] [address] Mar, Insomnia, unspecified type G47.00 and Actinic keratosis L57.[address] [address] Jan, [address] [id number] Jan, Routine health maintenance Z00.00 ; Screening for diabetes mellitus Z13.1 and History of scoliosis Z87.39 [place] [address] [address] Dec, Routine health maintenance Z00.00 ; Screening for diabetes mellitus Z13.1 ; History of scoliosis Z87.39 ; Insomnia G47.00 ; Contact dermatitis L25.9 ; Fibrocystic breast changes N60.19 and Nipple discharge N64.[address] [address] Nov, [address] [address] Oct, Insomnia, unspecified type G47.[address] [address] Aug, Insomnia, unspecified type G47.00 ; History of methamphetamine abuse Z87.898 ; Hx of cannabis abuse Z87.898 ; Diverticulosis K57.90 ; Hx of diverticulitis of colon Z87.19 and Hordeolum eyelid, internal H00.029 [facility] IN [facility] [id number] [place] [address] Aug, Hordeolum eyelid, internal H00.029 [place] [id number] [place] [address] Apr, Lymphadenopathy 785.[address] [address] Apr, Lymphadenopathy [address]85.[address] [place] [address] February, [facility] [place] [facility] [address] [id number] [place] [address] 14 Jan, 2015 [facility] [place] [facility] [address] [id number] [place] [address]- [address] 13 Jan, 2015 [facility] [place] [facility] [address] [id number] [place] [address] Jul, [facility] [place] [facility] [address] [id number] [place] [address] Jul, [facility] [place] [facility] [address] [id number] [place] [address] Jul, [facility] [place] [facility] [address] [id number] [place] [address] Jul, [facility] [place] [facility] [address] [id number] [place] [address] Jul, [facility] [place] [facility] [address] [id number] [place] [address] Jul, [facility] [place] [facility] [address] [id number] [place] [address] Jul, [facility] [place] [facility] [address] [id number] [place] [address]- [address] Jul, [facility] [place] [facility] [address] [id number] [place] [address]- 9[address] 22 Jun, 2013 [facility] [place] [facility] [address] [id number] [place] [address]- [address] 22 Jun, 2013 [facility] [place] [facility] [address] [id number] [place] [address]- 9761 22 Jun, 2013 [facility] [place] [facility] [address] [id number] [place] [address]- 7978 22 Jun, 2013 [facility] [place] [facility] [address] [id number] [place] [address]- [address] 19 Jun, 2013 [facility] [place] [facility] [address] [id number] [place] [address] 2546 19 Jun, 2013 [facility] [place] [facility] [address] [id number] [place] [address] 2546 Jun, 2013 [facility] [place] [facility] [address] [id number] [place] [address] 2546 Jun, 2013 [facility] [place] [facility] [address] [id number] [place] [address] 2546 16 Jun, 2013 [facility] [place] [facility] [address] [id number] [place] [address] 2546 16 Jun, 2013 [facility] [place] [facility] [address] [id number] [place] [address]- 2846 Jun, 2013 [facility] [place] [facility] [address] [id number] [place] [address]- 95[address] Jun, 2013 [facility] [place] [facility] [address] [id number] [place] [address]- 3[address] May, [facility] [place] [facility] [address] [id number] [place] [address]- [address] May, [facility] [place] [facility] [address] [id number] [place] [address]- 9192 May, [facility] [place] [facility] [address] [id number] [place] [address] 2542 May, [facility] [place] [facility] [address] [id number] [place] [address]- 2544 May, [facility] [place] [facility] [address] [id number] [place] [address] 2549 May, [facility] [place] [facility] [address] [id number] [place] [address] 2546 May, [facility] [place] [facility] [address] [id number] [place] [address]- 25[address] May, [facility] [place] [facility] [address] [id number] [place] [address]- 48[address] May, [facility] [place] [facility] [address] [id number] [place] [address]- 6[address] May, [facility] [place] [facility] [address] [id number] [place] [address]- [address] May, [facility] [place] [facility] [address] [id number] [place] [address]- 8[address] May, [facility] [place] [facility] [address] [id number] [place] [address]- 39[address] May, [facility] [place] [facility] [address] [id number] [place] [address]- 8674 May, [facility] [place] [facility] [address] [id number] [place] [address]- 8[address] Apr, [facility] [place] [facility] [address] [id number] [place] [address]- 7267 Apr, [facility] [place] [facility] [address] [id number] [place] [address]- 8[address] Apr, [facility] [place] [facility] [address] [id number] [place] [address]- 40[address] Apr, [facility] [place] [facility] [address] [id number] [place] [address]- 4089 Apr, [facility] [place] [facility] [address] [id number] [place] [address]- 6[address] Apr, [facility] [place] [facility] [address] [id number] [place] [address]- 6779 Apr, [facility] [place] [facility] [address] [id number] [place] [address]- 9447 Apr, [facility] [place] [facility] [address] [id number] [place] [address]- 2835 Apr, [facility] [place] [facility] [address] [id number] [place] [address]- 9[address] Apr, [facility] [place] [facility] [address] [id number] [place] [address]- [address] Apr, [facility] [address] [facility] [id number] [place] [address]- [address] Dec, [facility] [address] [facility] [id number], [place] [address] Dec, [facility] [address] [facility] [id number], [place] [address] Nov, [facility] [address] [facility] [id number], [place] [address] Nov, IMMUNIZATIONS No Known Immunizations SOCIAL HISTORY Never Assessed REASON FOR VISIT Lab (walk-in) PLAN OF CARE VITAL SIGNS MEDICATIONS Unknown Medications RESULTS No Results PROCEDURES Procedure Date Ordered Result Body Site COMPREHEN METABOLIC PANEL Jul 07, 2017 Hemoglobin Test Send Out 0 dollar Jul 07, 2017 LIPID PANEL Jul 07, 2017 COMPLETE CBC W/AUTO DIFF WBC Jul 07, 2017 VENIPUNCT, ROUTINE* Jul 07, 2017 ASSAY THYROID STIM HORMONE Jul 07, 2017 INSTRUCTIONS MEDICATIONS ADMINISTERED No Known Medications [...]
--- OUTSIDE RECORDS SUMMARY | 2018-05-16 14:28 | XMS REPORT ---
Author Author XIAO JONES [employer] Address Unknown Phone Unavailable Care Team Providers Care Package Liner Name Role Phone XIAO JONES CP Unavailable Allergies, Adverse Reactions, Alerts Substance Reaction Event Type Opioids - Morphine Analogues Info Not Available Non Drug Allergy Problems Problem Type Condition Code Onset Dates Condition Status Assessment Hx of diverticulitis of colon Z87.19 Active Assessment Hx of cannabis abuse Z87.898 Active Assessment Diverticulosis K57.90 Active Assessment Hordeolum eyelid, internal H00.029 Active Problem Diverticulosis K57.90 Active Problem Hx of diverticulitis of colon Z87.19 Active Problem Insomnia, unspecified type G47.00 Active Assessment Insomnia, unspecified type G47.00 Active Assessment History of methamphetamine abuse Z87.898 Active Problem History of methamphetamine abuse Z87.898 Active Problem Hx of cannabis abuse Z87.898 Active Medications Medication Code System Code Instructions Start Date End Date Status Dosage Erythromycin [facility] [address]-72 0.5 Ophthalmic 4 times a day Sep 18, 2015 Oct 02, 2015 1 application trazodone [facility] [address]-90 100 mg orally Once a day April 25, 2014Oct take 1 tablet by Oral route 1 time per day after meals at bedtime Procedures Procedure Coding System Code Date Office Visit, Est Pt., Level 3 CPT-4 03077 Sep 18, 2015 Vital Signs Date/Time: Sep 18, 2015 Temperature 98.0 F Weight 191.0 lbs Height 69 in BMI 28.20 Index Blood Pressure Diastolic 76 mmHg Blood Pressure Systolic 115 mmHg Cardiac Monitoring Heart Rate 56 bpm Results No Known Results Summary Purpose [employer] Submission
--- OUTSIDE RECORDS SUMMARY | 2018-05-16 14:29 | XMS REPORT ---
Author Author STEPHANIE SIMON Organization [employer] Address Unknown Phone Unavailable Care Team Providers Care Claims Adjuster Supervisor Name Role Phone STEPHANIE SIMON CP Unavailable Allergies, Adverse Reactions, Alerts Substance Reaction Event Type Opioids - Morphine Analogues Info Not Available Non Drug Allergy Problems Problem Type Condition Code Onset Dates Condition Status Problem Diverticulosis K57.90 Active Problem Hx of diverticulitis of colon Z87.19 Active Problem Insomnia, unspecified type G47.00 Active Assessment Hordeolum eyelid, internal H00.029 Active Problem History of methamphetamine abuse Z87.898 Active Problem Hx of cannabis abuse Z87.898 Active Medications Medication Code System Code Instructions Start Date End Date Status Dosage Erythromycin [facility] [place] 2] [address]-51 0.5 Ophthalmic 4 times a day Sep 18, 2015 Oct 02, 2015 1 application Procedures Procedure Coding System Code Date Office Visit, Est Pt., Level 3 CPT-4 85370 Sep 18, 2015 Vital Signs Date/Time: Sep 18, 2015 Temperature 97.8 F Weight 190 lbs Height 69 in BMI 28.06 Index Blood Pressure Diastolic 80 mmHg Blood Pressure Systolic 112 mmHg Cardiac Monitoring Heart Rate 70 bpm Results No Known Results Summary Purpose [employer] Submission
--- OUTSIDE RECORDS SUMMARY | 2018-05-16 14:29 | XMS REPORT ---
Author Author DARIEN WOLFE Organization [facility] Address [address] [place] [address] Care Team Providers Care Director Informatics Name Role Phone DARIEN WOLFE Unavailable PROBLEMS Type Condition ICD9-CM Code ZGG39-KT Code Onset Dates Condition Status SNOMED Code Problem Contact dermatitis L25.9 Active 62020080 Problem History of scoliosis Z87.39 Active 934943608 Problem Insomnia G47.00 Active 350402928 Problem Pain in right knee M25.561 Active 98451950 Problem Other chronic pain G89.29 Active 78376811 Problem Routine health maintenance Z00.00 Active 806760858 Problem Screening for diabetes mellitus Z13.1 Active 519663172 Problem Elevated hemoglobin A1c R73.09 Active 972175494 Problem Actinic keratosis L57.0 Active 666432000 Problem Hx of cannabis abuse Z87.898 Active 740286775577107 Problem Diverticulosis K57.90 Active 517231025 Problem Insomnia, unspecified type G47.00 Active 325385903 Problem History of methamphetamine abuse Z87.898 Active 005145520 Problem Nipple discharge N64.52 Active 84684719 Problem Hx of diverticulitis of colon Z87.19 Active 975070469 Problem Fibrocystic breast changes N60.19 Active 01122536 ALLERGIES Unknown Allergies SOCIAL HISTORY No smoking Hx information available PLAN OF CARE VITAL SIGNS MEDICATIONS Medication Instructions Dosage Frequency Start Date End Date Duration Status Atorvastatin Calcium 10 mg Orally Once a day, avoid grapefruit juice 1 tablet 30 Jun, 2016 Active RESULTS No Results PROCEDURES No Known procedures IMMUNIZATIONS No Known Immunizations
--- OUTSIDE RECORDS SUMMARY | 2018-05-16 14:29 | XMS REPORT ---
Author Author DARIEN WOLFE Organization [facility] Address [address] [place] [address] Care Team Providers Care Hydrocrane Operator Name Role Phone DARIEN WOLFE Unavailable PROBLEMS Type Condition ICD9-CM Code PYU08-SO Code Onset Dates Condition Status SNOMED Code Problem Contact dermatitis L25.9 Active 34929928 Problem History of scoliosis Z87.39 Active 590167905 Problem Insomnia G47.00 Active 514491372 Problem Pain in right knee M25.561 Active 17960714 Problem Other chronic pain G89.29 Active 96076190 Problem Routine health maintenance Z00.00 Active 206445996 Problem Screening for diabetes mellitus Z13.1 Active 259989393 Problem Elevated hemoglobin A1c R73.09 Active 006734422 Problem Actinic keratosis L57.0 Active 192492912 Problem Hx of cannabis abuse Z87.898 Active 954223039603412 Problem Diverticulosis K57.90 Active 617135310 Problem Insomnia, unspecified type G47.00 Active 918547913 Problem History of methamphetamine abuse Z87.898 Active 822956616 Problem Nipple discharge N64.52 Active 17227682 Problem Hx of diverticulitis of colon Z87.19 Active 748888038 Problem Fibrocystic breast changes N60.19 Active 23830356 ALLERGIES Substance Reaction Event Type Date Status Opioids - Morphine Analogues Unknown Non Drug Allergy Sep, Active SOCIAL HISTORY No smoking Hx information available PLAN OF CARE Activity Details Follow Up prn Reason: VITAL SIGNS Height 69 in 2016-10-13 Weight 173.2 lbs 2016-10-13 Temperature 97.5 degrees Fahrenheit 2016-10-13 Heart Rate 60 bpm 2016-10-13 Respiratory Rate 20 2016-10-13 BMI 25.57 kg/m2 2016-10-13 Blood pressure systolic 132 mmHg 2016-10-13 Blood pressure diastolic 70 mmHg 2016-10-13 MEDICATIONS Medication Instructions Dosage Frequency Start Date End Date Duration Status trazodone 100 mg orally Once a day at bedtime 1 tablet Apr, Active Trazodone HCl 100MG TAKE ONE TABLET BY MOUTH ONCE DAILY AT BEDTIME 90 Active Melatonin 10 MG Orally Once a day 1 tablet at bedtime as needed with food 24h Active MetFORMIN HCl ER 500 MG Orally twice a day 1 tablet with evening meal x 7days then one tablet twice daily with meals 12h 07 Jan, 2016 Active Atorvastatin Calcium 10 mg Orally Once a day, avoid grapefruit juice 1 tablet Jun, Active Triamcinolone Acetonide 0.1 % Externally Twice a day 1 application to affected area 12h 14 Mar, 2016 Active RESULTS No Results PROCEDURES Procedure Date Ordered Related Diagnosis Body Site Office Visit, Est Pt., Level 3 Oct 13, 2016 IMMUNIZATIONS No Known Immunizations
--- OUTSIDE RECORDS SUMMARY | 2018-05-16 14:29 | XMS REPORT ---
Author Author DARIEN WOLFE Organization [facility] Address [address] [place] [address] Care Team Providers Care Reheat Furnace Operator Name Role Phone DARIEN WOLFE Unavailable PROBLEMS Type Condition ICD9-CM Code MSP62-MQ Code Onset Dates Condition Status SNOMED Code Problem Insomnia, unspecified type G47.00 Active 713405595 Problem History of scoliosis Z87.39 Active 827869624 Problem Fibrocystic breast changes N60.19 Active 23121557 Problem Elevated LDL cholesterol level E78.00 Active 801794152 Problem Elevated hemoglobin A1c R73.09 Active 293599551 Problem Actinic keratosis L57.0 Active 378268919 Problem Contact dermatitis L25.9 Active 61858873 Problem Other chronic pain G89.29 Active 65608541 Problem Pain in right knee M25.561 Active 18101033 ALLERGIES No Information ENCOUNTERS Encounter Location Date Diagnosis [place] [address] [address] February, [facility] [address] [id number] [place] [address] 24895- 1762 Oct, Bronchitis J40 ; Elevated hemoglobin A1c R73.09 and Elevated LDL cholesterol level E78.00 [place] [address] [place] [id number] [place] [address] 37501- 4518 Jun, Elevated hemoglobin A1c R73.09 and Elevated LDL cholesterol level E78.00 [place] [address] [place] [id number] [place] [address] 23387- 1178 Jun, Elevated hemoglobin A1c R73.09 ; Elevated LDL cholesterol level E78.00 and Insomnia, unspecified type G47.00 [facility] [address] [place] [address] 40369- 5584 Jun, Elevated hemoglobin A1c R73.09 ; Insomnia, unspecified type G47.00 ; Elevated LDL cholesterol level E78.00 and Other chronic pain G89.29 [place] [address] [place] [id number] [place] [address] 14577- 3361 Jun, [facility] [id number] [place] [address] 80869 -7772 May, Lower abdominal pain R10.30 and Cystitis N30.90 [place] [address] [place] [id number] [place] [address] 10300- 3123 Sep, Lipoma of back D17.1 [place] [address] [place] [id number] [place] [address] 06179- 7816 Sep, Lipoma of back D17.1 ; Insomnia G47.00 ; Pain in right knee M25.561 ; Elevated hemoglobin A1c R73.09 and Elevated LDL cholesterol level E78.00 [facility] [address] [id number] [place] [address] 58076 -4180 Sep, Sebaceous cyst L72.3 [place] [address] [place] [id number] [place] [address] 68988- 6121 Sep, [place] [address] [place] [id number] [place] [address] 65287- 2012 Jul, [place] [address] [place] [id number] [place] [address] 00356- 9259 Jun, [place] [address] [place] [id number] [place] [address] 71729- 8107 Jun, Pain in right knee M25.561 ; Elevated hemoglobin A1c R73.09 and Elevated LDL cholesterol level E78.0 [place] [address] [place] [id number] [place] [address] 02646- 2782 Jun, Pain in right knee M25.561 ; Other chronic pain G89.29 ; Elevated hemoglobin A1c R73.09 and Elevated LDL cholesterol level E78.0 [place] [address] [place] [id number] [place] [address] 60677- 4978 Mar, Insomnia, unspecified type G47.00 and Actinic keratosis L57.[address] 26917- 0363 Jan, [address] [id number]- 2551 Jan, Routine health maintenance Z00.00 ; Screening for diabetes mellitus Z13.1 and History of scoliosis Z87.39 [place] [address] 50787- 8527 Dec, Routine health maintenance Z00.00 ; Screening for diabetes mellitus Z13.1 ; History of scoliosis Z87.39 ; Insomnia G47.00 ; Contact dermatitis L25.9 ; Fibrocystic breast changes N60.19 and Nipple discharge N64.[address] 43220- 1367 Nov, [address] 87540- 1952 Oct, Insomnia, unspecified type G47.[address] 53750- 3104 Aug, Insomnia, unspecified type G47.00 ; History of methamphetamine abuse Z87.898 ; Hx of cannabis abuse Z87.898 ; Diverticulosis K57.90 ; Hx of diverticulitis of colon Z87.19 and Hordeolum eyelid, internal H00.029 [facility] [id number] [place] [address] 45474 -9525 Aug, Hordeolum eyelid, internal H00.029 [place] [id number] [place] [address] 45935- 8511 Apr, Lymphadenopathy 785.[address] 90296- 9938 Apr, Lymphadenopathy 785.[address] [place] [address]- 9232 February, [facility] [place] [facility] [address] [id number] [place] [address]- 4683 14 Jan, 2015 [facility] [place] [facility] [address] [id number] [place] [address]- 4521 13 Jan, 2015 [facility] [place] [facility] [address] [id number] [place] [address]- 3795 Jul, [facility] [place] [facility] [address] [id number] [place] [address]- 9310 Jul, [facility] [place] [facility] [address] [id number] [place] [address]- 4424 Jul, [facility] [place] [facility] [address] [id number] [place] [address]- 0637 Jul, [facility] [place] [facility] [address] [id number] [place] [address]- 8104 Jul, [facility] [place] [facility] [address] [id number] [place] [address]- 3359 Jul, [facility] [place] [facility] [address] [id number] [place] [address]- 8922 Jul, [facility] [place] [facility] [address] [id number] [place] [address]- 6583 Jul, [facility] [place] [facility] [address] [id number] [place] [address]- 4190 22 Jun, 2013 [facility] [place] [facility] [address] [id number] [place] [address]- 2264 22 Jun, 2013 [facility] [place] [facility] [address] [id number] [place] [address]- 4513 22 Jun, 2013 [facility] [place] [facility] [address] [id number] [place] [address]- 4754 22 Jun, 2013 [facility] [place] [facility] [address] [id number] [place] [address]- 1470 19 Jun, 2013 [facility] [place] [facility] [address] [id number] [place] [address] 2546 19 Jun, 2013 [facility] [place] [facility] [address] [id number] [place] [address] 2546 Jun, 2013 [facility] [place] [facility] [address] [id number] [place] [address] 2546 Jun, 2013 [facility] [place] [facility] [address] [id number] [place] [address] 2546 16 Jun, 2013 [facility] [place] [facility] [address] [id number] [place] [address] 2546 16 Jun, 2013 [facility] [place] [facility] [address] [id number] [place] [address]- 2896 Jun, 2013 [facility] [place] [facility] [address] [id number] [place] [address]- 9621 Jun, 2013 [facility] [place] [facility] [address] [id number] [place] [address]- 0219 May, [facility] [place] [facility] [address] [id number] [place] [address]- 0404 May, [facility] [place] [facility] [address] [id number] [place] [address]- 6995 May, [facility] [place] [facility] [address] [id number] [place] [address] 2548 May, [facility] [place] [facility] [address] [id number] [place] [address]- 2545 May, [facility] [place] [facility] [address] [id number] [place] [address] 2547 May, [facility] [place] [facility] [address] [id number] [place] [address] 2546 May, [facility] [place] [facility] [address] [id number] [place] [address]- 254 May, [facility] [place] [facility] [address] [id number] [place] [address]- 0191 May, [facility] [place] [facility] [address] [id number] [place] [address]- 4965 May, [facility] [place] [facility] [address] [id number] [place] [address]- 1230 May, [facility] [place] [facility] [address] [id number] [place] [address]- 6647 May, [facility] [place] [facility] [address] [id number] [place] [address]- 4504 May, [facility] [place] [facility] [address] [id number] [place] [address]- 3963 May, [facility] [place] [facility] [address] [id number] [place] [address]- 7434 Apr, [facility] [place] [facility] [address] [id number] [place] [address]- 5438 Apr, [facility] [place] [facility] [address] [id number] [place] [address]- 8873 Apr, [facility] [place] [facility] [address] [id number] [place] [address]- 7649 Apr, [facility] [place] [facility] [address] [id number] [place] [address]- 9395 Apr, [facility] [place] [facility] [address] [id number] [place] [address]- 0602 Apr, [facility] [place] [facility] [address] [id number] [place] [address]- 1008 Apr, [facility] [place] [facility] [address] [id number] [place] [address]- 0539 Apr, [facility] [place] [facility] [address] [id number] [place] [address]- 0923 Apr, [facility] [place] [facility] [address] [id number] [place] [address]- 8877 Apr, [facility] [place] [facility] [address] [id number] [place] [address]- 2546 Apr, [facility] [address] [facility] [id number], [place] [address]- 6976 Dec, [facility] [address] [facility] [id number], [place] [address]- 2546 Dec, [facility] [address] [facility] [id number], [place] [address]- 4136 Nov, [facility] [address] [facility] [id number], [place] [address]- 0636 Nov, IMMUNIZATIONS No Known Immunizations SOCIAL HISTORY Never Assessed REASON FOR VISIT per lab results PLAN OF CARE VITAL SIGNS MEDICATIONS Medication Instructions Dosage Frequency Start Date End Date Duration Status MetFORMIN HCl ER 500 MG Orally twice a day 1 tablet with evening meal x 7days then one tablet twice daily with meals 12h 07 Jan, 2016 90 days Active Atorvastatin Calcium 10 mg Orally Once a day, avoid grapefruit juice 1 tablet Jun, 90 days Active RESULTS No Results PROCEDURES No Known [...]
--- OUTSIDE RECORDS SUMMARY | 2018-05-16 14:29 | XMS REPORT ---
Author Author DARIEN WOLFE Organization [facility] Address [address] [place] [address] Care Team Providers Care Manager Area Name Role Phone DARIEN WOLFE Unavailable PROBLEMS Type Condition ICD9-CM Code EIG48-LP Code Onset Dates Condition Status SNOMED Code Problem Contact dermatitis L25.9 Active 39411646 Problem History of scoliosis Z87.39 Active 042334033 Problem Insomnia G47.00 Active 136947061 Problem Pain in right knee M25.561 Active 90039331 Problem Other chronic pain G89.29 Active 92143414 Problem Routine health maintenance Z00.00 Active 789405117 Problem Screening for diabetes mellitus Z13.1 Active 421578903 Problem Elevated hemoglobin A1c R73.09 Active 191297382 Problem Actinic keratosis L57.0 Active 774516838 Assessment Pain in right knee M25.561 22 Jun, 2016 Active 44560681 Problem Hx of cannabis abuse Z87.898 Active 881408105577819 Assessment Elevated LDL cholesterol level E78.0 Jun, Active 374035190 Problem Diverticulosis K57.90 Active 298948577 Problem Insomnia, unspecified type G47.00 Active 399291582 Problem History of methamphetamine abuse Z87.898 Active 554780419 Problem Nipple discharge N64.52 Active 20658092 Problem Hx of diverticulitis of colon Z87.19 Active 190922950 Problem Fibrocystic breast changes N60.19 Active 28314887 ALLERGIES Substance Reaction Event Type Date Status Opioids - Morphine Analogues Unknown Non Drug Allergy Jun, Active SOCIAL HISTORY No smoking Hx information available PLAN OF CARE VITAL SIGNS Height 69 in 2016-07-17 Weight 177.0 lbs 2016-07-17 Heart Rate 78 bpm 2016-07-17 Respiratory Rate 20 2016-07-17 BMI 26.14 kg/m2 2016-07-17 Blood pressure systolic 120 mmHg 2016-07-17 Blood pressure diastolic 76 mmHg 2016-07-17 MEDICATIONS Medication Instructions Dosage Frequency Start Date End Date Duration Status Triamcinolone Acetonide 0.1 % Externally Twice a day 1 application to affected area 12h 14 Mar, 2016 Active Melatonin 10 MG Orally Once a day 1 tablet at bedtime as needed with food 24h Active trazodone 100 mg orally Once a day at bedtime 1 tablet Apr, Active RESULTS No Results PROCEDURES Procedure Date Ordered Related Diagnosis Body Site Office Visit, Est Pt., Level 3 Jul 17, 2016 IMMUNIZATIONS No Known Immunizations
--- OUTSIDE RECORDS SUMMARY | 2018-05-16 14:29 | XMS REPORT ---
Author Author DARIEN WOLFE Organization [facility] Address [address] [place] [address] Care Team Providers Care Veterinary Manager Name Role Phone DARIEN WOLFE Unavailable PROBLEMS Type Condition ICD9-CM Code NHL45-KZ Code Onset Dates Condition Status SNOMED Code Problem Insomnia, unspecified type G47.00 Active 825318645 Problem History of scoliosis Z87.39 Active 717526202 Problem Fibrocystic breast changes N60.19 Active 11600117 Problem Elevated LDL cholesterol level E78.00 Active 391543958 Problem Elevated hemoglobin A1c R73.09 Active 224418844 Problem Actinic keratosis L57.0 Active 152359411 Problem Contact dermatitis L25.9 Active 10742776 Problem Other chronic pain G89.29 Active 59444781 Problem Pain in right knee M25.561 Active 85589199 ALLERGIES Substance Reaction Event Type Date Status Opioids - Morphine Analogues Unknown Non Drug Allergy Jun, Active ENCOUNTERS Encounter Location Date Diagnosis [facility] [address] [place] [id number] [place] [address] 88875- 7352 February, [facility] [address] [id number] [place] [address] 99120- 6347 Oct, Bronchitis J40 ; Elevated hemoglobin A1c R73.09 and Elevated LDL cholesterol level E78.00 [facility] [address] [place] [address] 50496- 0643 Jun, Elevated hemoglobin A1c R73.09 and Elevated LDL cholesterol level E78.00 [facility] [id number] [place] [address] 75727- 2069 Jun, Elevated hemoglobin A1c R73.09 ; Elevated LDL cholesterol level E78.00 and Insomnia, unspecified type G47.00 [facility] [address] [id number] [place] [address] 27026- 5461 Jun, Elevated hemoglobin A1c R73.09 ; Insomnia, unspecified type G47.00 ; Elevated LDL cholesterol level E78.00 and Other chronic pain G89.29 [place] [address] [address]- 5089 Jun, [facility] [id number] [place] [address] 64225 -4200 May, Lower abdominal pain R10.30 and Cystitis N30.90 [place] [address] [place] [id number] [place] [address] 44870- 5821 Sep, Lipoma of back D17.1 [place] [address] [place] [id number] [place] [address] 23334- 2147 Sep, Lipoma of back D17.1 ; Insomnia G47.00 ; Pain in right knee M25.561 ; Elevated hemoglobin A1c R73.09 and Elevated LDL cholesterol level E78.00 [facility] [address] [id number] [place] [address] 86268 -5204 Sep, Sebaceous cyst L72.3 [place] [address] [place] [id number] [place] [address] 10492- 5585 Sep, [place] [address] [place] [address] 73183- 0388 Jul, [place] [address] [place] [id number] [place] [address] 77050- 5581 Jun, [place] [address] [place] [id number] [place] [address] 23064- 0867 Jun, Pain in right knee M25.561 ; Elevated hemoglobin A1c R73.09 and Elevated LDL cholesterol level E78.0 [place] [address] [place] [address] 88050- 1856 Jun, Pain in right knee M25.561 ; Other chronic pain G89.29 ; Elevated hemoglobin A1c R73.09 and Elevated LDL cholesterol level E78.0 [place] [address] [place] [address] 33626- 0696 14 Mar, 2016 Insomnia, unspecified type G47.00 and Actinic keratosis L57.0 [place] [address] [place] [id number] [place] [address] 89306- 5782 Jan, [place] [address] [place] [id number] [place] [address] 11292- 3738 Jan, Routine health maintenance Z00.00 ; Screening for diabetes mellitus Z13.1 and History of scoliosis Z87.39 [place] [address] 44013- 8494 Dec, Routine health maintenance Z00.00 ; Screening for diabetes mellitus Z13.1 ; History of scoliosis Z87.39 ; Insomnia G47.00 ; Contact dermatitis L25.9 ; Fibrocystic breast changes N60.19 and Nipple discharge N64.[address] 16817- 8918 Nov, [place] [address] [place] [id number] [place] [address] 80115- 5672 Oct, Insomnia, unspecified type G47.00 [place] [id number] [place] [address] 69941- 0489 Aug, Insomnia, unspecified type G47.00 ; History of methamphetamine abuse Z87.898 ; Hx of cannabis abuse Z87.898 ; Diverticulosis K57.90 ; Hx of diverticulitis of colon Z87.19 and Hordeolum eyelid, internal H00.029 [facility] [address] [place] [address] 93696 -2888 Aug, Hordeolum eyelid, internal H00.029 [place] [address] [place] [address] 91330- 8201 Apr, Lymphadenopathy 785.6 [place] [address] [place] [id number] [place] [address] 76570- 2824 10 Phillip, 2015 Lymphadenopathy 785.6 [facility] [place] [facility] [address] [id number] [place] [address]- 6401 February, [facility] [place] [facility] [address] [id number] [place] [address]- 9823 14 Jan, 2015 [facility] [place] [facility] [address] [id number] [place] [address]- 4885 Jan, [facility] [place] [facility] [address] [id number] [place] [address]- 7574 Jul, [facility] [place] [facility] [address] [id number] [place] [address]- 2564 Jul, [facility] [place] [facility] [address] [id number] [place] [address]- 3937 Jul, [facility] [place] [facility] [address] [id number] [place] [address]- 1953 Jul, [facility] [place] [facility] [address] [id number] [place] [address]- 5743 Jul, [facility] [place] [facility] [address] [id number] [place] [address]- 6314 Jul, [facility] [place] [facility] [address] [id number], [place] [address]- 3172 Jul, [facility] [place] [facility] [address] [id number], [place] [address]- 3344 Jul, [facility] [place] [facility] [address] [id number], [place] [address]- 5074 Jun, [facility] [place] [facility] [address] [id number] [place] [address]- 3620 Jun, [facility] [place] [facility] [address] [id number] [place] [address]- 5710 Jun, [facility] [place] [facility] [address] [id number], [place] [address]- 2125 Jun, [facility] [place] [facility] [address] [id number], [place] [address]- 7529 Jun, 2013 [facility] [place] [facility] [address] [id number] [place] [address] 2546 Jun, 2013 [facility] [place] [facility] [address] [id number] [place] [address]- 8716 Jun, 2013 [facility] [place] [facility] [address] [id number] [place] [address]- 4126 Jun, 2013 [facility] [place] [facility] [address] [id number] [place] [address]- 0531 Jun, 2013 [facility] [place] [facility] [address] [id number] [place] [address]- 7737 Jun, 2013 [facility] [place] [facility] [address] [id number] [place] [address]- 5570 Jun, [facility] [place] [facility] [address] [id number] [place] [address]- 9348 Jun, [facility] [place] [facility] [address] [id number] [place] [address]- 3116 May, [facility] [place] [facility] [address] [id number] [place] [address]- 8297 May, [facility] [place] [facility] [address] [id number] [place] [address]- 7286 May, [facility] [place] [facility] [address] [id number] [place] [address]- 2373 May, [facility] [place] [facility] [address] [id number] [place] [address]- 9064 May, [facility] [place] [facility] [address] [id number] [place] [address]- 4894 May, [facility] [place] [facility] [address] [id number] [place] [address]- 5205 May, [facility] [place] [facility] [address] [id number] [place] [address]- 4559 May, [facility] [place] [facility] [address] [id number] [place] [address]- 9865 May, [facility] [place] [facility] [address] [id number] [place] [address]- 1600 May, [facility] [place] [facility] [address] [id number] [place] [address]- 1081 May, [facility] [place] [facility] [address] [id number] [place] [address]- 6091 May, [facility] [place] [facility] [address] [id number] [place] [address]- 8827 May, [facility] [place] [facility] [address] [id number] [place] [address]- 3190 May, [facility] [place] [facility] [address] [id number] [place] [address]- 3783 Apr, [facility] [place] [facility] [address] [id number] [place] [address]- 1653 Apr, [facility] [place] [facility] [address] [id number] [place] [address]- 6418 Apr, [facility] [place] [facility] [address] [id number] [place] [address]- 6305 Apr, [facility] [place] [facility] [address] [id number] [place] [address]- 1169 Apr, [facility] [place] [facility] [address] [id number] [place] [address]- 2976 Apr, [facility] [place] [facility] [address] [id number] [place] [address]- 2174 Apr, [facility] [place] [facility] [address] [id number] [place] [address]- 0688 Apr, [facility] [place] [facility] [address] [id number] [place] [address] Apr, [facility] [place] [facility] [address] [id number] [place] [address] Apr, [facility] [address] [facility] [id number], [place] [address] Apr, [facility] [address] [facility] [id number], [place] [address] Dec, [facility] [address] [facility] [id number], [place] [address] Dec, [facility] [address] [facility] [id number][place] [address] Nov, [facility] [address] [facility] [id number], [place] [address] Nov, IMMUNIZATIONS No Known Immunizations SOCIAL HISTORY Never Assessed REASON FOR VISIT Medication Mgmt ---DBennettShandraN PLAN OF CARE Activity Details Follow Up 3 Months Reason:[facility] VITAL SIGNS Height 69 in 2017-07-06 Weight 148 lbs 2017-07-06 Temperature 98.7 degrees Fahrenheit 2017-07-06 Heart Rate 70 bpm 2017-07-06 Respiratory Rate 20 2017-07-06 BMI 21.85 kg/m2 2017-07-06 Blood pressure systolic 108 mmHg 2017-07-06 Blood pressure diastolic 70 mmHg 2017-07-06 MEDICATIONS Medication Instructions Dosage Frequency Start Date End Date Duration Status MetFORMIN HCl ER 500 MG Orally twice a day 1 tablet with evening meal x 7days then one tablet twice daily with meals 12h 07 Jan, 2016 90 days Active Triamcinolone Acetonide 0.1 % Externally Twice a day 1 application to affected area 12h 14 Mar, 2016 Active Atorvastatin Calcium 10 mg Orally Once a day, avoid grapefruit juice 1 tablet 30 Jun, 2016 90 days Active Trazodone HCl 100MG TAKE ONE TABLET BY MOUTH ONCE DAILY AT BEDTIME 90 Active Melatonin 10 MG Orally Once a day 1 tablet at bedtime as needed with food 24h Active RESULTS No Results PROCEDURES No Known [...] ankle ganglion cyst removal Surgical History colonoscopy 2014 Hospitalization History Surgeries only
--- OUTSIDE RECORDS SUMMARY | 2018-05-16 14:30 | XMS REPORT | Continuity of Care Document ---
Author Author [facility] Address Unknown Phone Unavailable Allergies Active Description Code Type Severity Reaction Onset Reported/Identified Relationship to Patient Clinical Status Yes Opioids - Morphine Analogues Drug Allergy N/A N/A 04/25/2014 Yes Opioids - Morphine Analogues [id number] Drug Allergy Unknown N/A 2013 Yes Opioids-Meperidine Related [id number] Drug Allergy Unknown N/A 2013 Medications There is no data. Problems Date Dx Coded Attending Type Code Diagnosis Diagnosed By 12/19/2013 NANCY VINCENT PHD 300.00 AN ANXIETY UNSPEC 12/19/2013 NANCY VINCENT PHD 300.00 AN ANXIETY UNSPEC 12/19/2013 GIGI SEVERINO APRN A 300.00 AN ANXIETY UNSPEC 12/19/2013 GIGI SEVERINO APRN A 300.00 AN ANXIETY UNSPEC 12/19/2013 GIGI SEVERINO APRN A 300.00 AN ANXIETY UNSPEC 12/19/2013 SANTOSH CASTRO DO 300.00 AN ANXIETY UNSPEC 12/19/2013 SANTOSH CASTRO DO 300.00 AN ANXIETY UNSPEC 12/19/2013 SANTOSH CASTRO DO 300.00 AN ANXIETY UNSPEC 12/19/2013 MADIHA PIMENTEL APRN 300.00 AN ANXIETY UNSPEC 04/25/2014 GIGI SEVERINO APRN A 305.20 NONDEPENDENT CANNABIS ABUSE UNSPECIFIED USE 04/25/2014 GIGI SEVERINO APRN A 719.47 PAIN IN JOINT INVOLVING ANKLE AND FOOT 04/25/2014 GIGI SEVERINO APRN A 729.1 MYALGIA AND MYOSITIS UNSPECIFIED 04/25/2014 GIGI SEVERINO APRN A V70.0 ROUTINE GENERAL MEDICAL EXAMINATION AT A HEALTH CARE FACILITY 04/25/2014 GIGI SEVERINO APRN A 305.20 NONDEPENDENT CANNABIS ABUSE UNSPECIFIED USE 04/25/2014 GIGI SEVERINO APRN A 719.47 PAIN IN JOINT INVOLVING ANKLE AND FOOT 04/25/2014 MERE LAW ENFORCEMENT INSTRUCTOR, GIGI A 729.1 MYALGIA AND MYOSITIS UNSPECIFIED 04/25/2014 MERE LAW ENFORCEMENT INSTRUCTORGIGI A V70.0 ROUTINE GENERAL MEDICAL EXAMINATION AT A HEALTH CARE FACILITY 04/25/2014 MERE LAW ENFORCEMENT INSTRUCTORGIGI A 305.20 NONDEPENDENT CANNABIS ABUSE UNSPECIFIED USE 04/25/2014 MERE LAW ENFORCEMENT INSTRUCTORGIGI A 719.47 PAIN IN JOINT INVOLVING ANKLE AND FOOT 04/25/2014 MERE LAW ENFORCEMENT INSTRUCTORGIGI A 729.1 MYALGIA AND MYOSITIS UNSPECIFIED 04/25/2014 MERE GIGI CEVALLOS A V70.0 ROUTINE GENERAL MEDICAL EXAMINATION AT A HEALTH CARE FACILITY 04/25/2014 SANTOSH CASTRO DO K 305.20 NONDEPENDENT CANNABIS ABUSE UNSPECIFIED USE 04/25/2014 KAMALA CASTRO DOA K 719.47 PAIN IN JOINT INVOLVING ANKLE AND FOOT 04/25/2014 SANTOSH CASTRO DO K 729.1 MYALGIA AND MYOSITIS UNSPECIFIED 04/25/2014 MATTHEW STEVENS SANTOSH K V70.0 ROUTINE GENERAL MEDICAL EXAMINATION AT A HEALTH CARE FACILITY 04/25/2014 MATTHEW STEVENS SANTOSH K 305.20 NONDEPENDENT CANNABIS ABUSE UNSPECIFIED USE 04/25/2014 KAMALA CASTRO DOA K 719.47 PAIN IN JOINT INVOLVING ANKLE AND FOOT 04/25/2014 MATTHEW STEVENS SANTOSH K 729.1 MYALGIA AND MYOSITIS UNSPECIFIED 04/25/2014 MATTHEW STEVENS SANTOSH K V70.0 ROUTINE GENERAL MEDICAL EXAMINATION AT A HEALTH CARE FACILITY 04/25/2014 KAMALA CASTRO DOA K 305.20 NONDEPENDENT CANNABIS ABUSE UNSPECIFIED USE 04/25/2014 MATTHEW STEVENS SANTOSH K 719.47 PAIN IN JOINT INVOLVING ANKLE AND FOOT 04/25/2014 CASTRO DO SANTOSH K 729.1 MYALGIA AND MYOSITIS UNSPECIFIED 04/25/2014 MATTHEW STEVENS SANTOSH K V70.0 ROUTINE GENERAL MEDICAL EXAMINATION AT A HEALTH CARE FACILITY 04/25/2014 MADIHA PIMENTEL APRN R 305.20 NONDEPENDENT CANNABIS ABUSE UNSPECIFIED USE 04/25/2014 MADIHA PIMENTEL APRN R 719.47 PAIN IN JOINT INVOLVING ANKLE AND FOOT 04/25/2014 MADIHA PIMENTEL APRN R 729.1 MYALGIA AND MYOSITIS UNSPECIFIED 04/25/2014 MARGARITO CEVALLOS, MADIHA R V70.0 ROUTINE GENERAL MEDICAL EXAMINATION AT A HEALTH CARE FACILITY 04/27/2014 MERE TRANGIGI Sierra A 078.11 CONDYLOMA ACUMINATUM 04/27/2014 MERE TRANGIGI Sierra A 078.11 CONDYLOMA ACUMINATUM 04/27/2014 MEREGIGI Sierra APRN A 078.11 CONDYLOMA ACUMINATUM 04/27/2014 CASTRO DO, SANTOSH K 078.11 CONDYLOMA ACUMINATUM 04/27/2014 CASTRO DO, SANTOSH K 078.11 CONDYLOMA ACUMINATUM 04/27/2014 CASTRO DO, SANTOSH K 078.11 CONDYLOMA ACUMINATUM 04/27/2014 MADIHA PIMENTEL APRN R 078.11 CONDYLOMA ACUMINATUM 05/02/2014 MERE TRANGIGI Sierra A V65.49 OTHER SPECIFIED COUNSELING 05/02/2014 MEREGIGI Sierra APRN A V72.31 ELECTRONIC EQUIPMENT SET UP OPERATOR EXAM, ROUTINE 05/02/2014 MERE TRANGIGI Sierra A V73.81 HPV SCREENING 05/02/2014 MERE TRANSUSAN SierraIDI A V76.10 BREAST CANCER SCREENING 05/02/2014 MERE TRANGIGI Sierra A V76.2 CERVICAL CANCER SCREENING (PAP SMEAR) 05/02/2014 MERE TRANGIGI Sierra A V76.51 COLON CANCER SCREENING 05/02/2014 MERE TRANGIGI Sierra A V65.49 OTHER SPECIFIED COUNSELING 05/02/2014 MEREGIGI Sierra APRN A V72.31 ELECTRONIC EQUIPMENT SET UP OPERATOR EXAM, ROUTINE 05/02/2014 MERE TRANGIGI Sierra A V73.81 HPV SCREENING 05/02/2014 MERE TRANSUSAN SierraIDI A V76.10 BREAST CANCER SCREENING 05/02/2014 MERESUSAN Sierra APRNIDI A V76.2 CERVICAL CANCER SCREENING (PAP SMEAR) 05/02/2014 MERESUSAN Sierra APRNIDI A V76.51 COLON CANCER SCREENING 05/02/2014 CASTRO DO SANTOSH K V65.49 OTHER SPECIFIED COUNSELING 05/02/2014 CASTRO DO, SANTOSH K V72.31 ELECTRONIC EQUIPMENT SET UP OPERATOR EXAM, ROUTINE 05/02/2014 CASTRO DO, SANTOSH K V73.81 HPV SCREENING 05/02/2014 CASTRO DO SANTOSH K V76.10 BREAST CANCER SCREENING 05/02/2014 CASTRO DO SANTOSH K V76.2 CERVICAL CANCER SCREENING (PAP SMEAR) 05/02/2014 CASTRO DO SANTOSH K V76.51 COLON CANCER SCREENING 05/02/2014 CASTRO DO SANTOSH K V65.49 OTHER SPECIFIED COUNSELING 05/02/2014 CASTRO DO SANTOSH K V72.31 ELECTRONIC EQUIPMENT SET UP OPERATOR EXAM, ROUTINE 05/02/2014 CASTRO DO SANTOSH K V73.81 HPV SCREENING 05/02/2014 CASTRO DO SANTOSH K V76.10 BREAST CANCER SCREENING 05/02/2014 CASTRO DO SANTOSH K V76.2 CERVICAL CANCER SCREENING (PAP SMEAR) 05/02/2014 CASTRO DO SANTOSH K V76.51 COLON CANCER SCREENING 05/02/2014 CASTRO DO SANTOSH K V65.49 OTHER SPECIFIED COUNSELING 05/02/2014 CASTRO DO SANTOSH K V72.31 ELECTRONIC EQUIPMENT SET UP OPERATOR EXAM, ROUTINE 05/02/2014 CASTRO DOKAMALAA K V73.81 HPV SCREENING 05/02/2014 CASTRO DO SANTOSH K V76.10 BREAST CANCER SCREENING 05/02/2014 CASTRO DO SANTOSH K V76.2 CERVICAL CANCER SCREENING (PAP SMEAR) 05/02/2014 CASTRO DOKAMALAA K V76.51 COLON CANCER SCREENING 05/02/2014 MADIHA PIMENTEL APRN R V65.49 OTHER SPECIFIED COUNSELING 05/02/2014 MADIHA PIMENTEL APRN R V72.31 ELECTRONIC EQUIPMENT SET UP OPERATOR EXAM, ROUTINE 05/02/2014 ARLETTE PIMENTEL APRNINA R V73.81 HPV SCREENING 05/02/2014 MARGARITO LAW ENFORCEMENT INSTRUCTOR, MADIHA R V76.10 BREAST CANCER SCREENING 05/02/2014 MARGARITO LAW ENFORCEMENT INSTRUCTOR, MADIHA R V76.2 CERVICAL CANCER SCREENING (PAP SMEAR) 05/02/2014 MARGARITO CEVALLOS MADIHA R V76.51 COLON CANCER SCREENING 06/16/2014 CASTRO DOKAMALAA K 789.00 ABDOMINAL PAIN UNSPECIFIED SITE 06/16/2014 CASTRO DO SANTOSH K 789.00 ABDOMINAL PAIN UNSPECIFIED SITE 06/16/2014 CASTRO DO SANTOSH K 789.00 ABDOMINAL PAIN UNSPECIFIED SITE 06/16/2014 ARLETTE PIMENTEL APRNINA R 789.00 ABDOMINAL PAIN UNSPECIFIED SITE 06/19/2014 SANTOSH CASTRO DO K 586 RENAL FAILURE UNSPECIFIED 06/19/2014 MATTHEW STEVENS SANTOSH K 586 RENAL FAILURE UNSPECIFIED 06/19/2014 MADIHA PIMENTEL APRN 586 RENAL FAILURE UNSPECIFIED 06/21/2014 ABBEY HUMPHREY Ot 305.20 CANNABIS ABUSE-UNSPEC 06/21/2014 ABBEY HUMPHREY Ot 719.47 JOINT PAIN-ANKLE 06/21/2014 ABBEY HUMPHREY Ot 729.1 MYALGIA AND MYOSITIS NOS 06/21/2014 ABBEY HUMPHREY Ot V57.1 PHYSICAL THERAPY NEC 06/21/2014 ABBEY HUMPHREY Ot V70.0 ROUTINE MEDICAL EXAM 07/11/2014 MATTHEW STEVENS SANTOSH K 793.4 NONSPECIFIC (ABNORMAL) FINDINGS ON RADIOLOGICAL AND OTHER EXAMINATION OF GASTROINTESTINAL TRACT 07/11/2014 MADIHA PIMENTEL APRN 793.4 NONSPECIFIC (ABNORMAL) FINDINGS ON RADIOLOGICAL AND OTHER EXAMINATION OF GASTROINTESTINAL TRACT 07/14/2014 HIRAM WALTERS APRN Ot 562.11 DIVERTICULITIS COLON (W/O MENT OF HEMORR 07/14/2014 HIRAM WALTERS APRN Ot 789.04 ABDOMINAL PAIN, LEFT LOWER QUADRANT 08/01/2014 MADIHA PIMENTEL APRN R 112.0 CANDIDIASIS OF MOUTH 09/08/2014 ABBEY HUMPHREY Ot 569.9 09/19/2014 TATE SAEZ DO Ot 211.3 BENIGN NEOPLASM LG BOWEL 09/19/2014 TATE SAEZ DO Ot 562.10 DIVERTICULOSIS COLON (W/O MENT OF HEMORR 11/23/2014 AMELIA OCAMPO DO Ot 621.9 11/23/2014 AMELIA OCAMPO DO Ot 625.9 11/23/2014 ABBEY HUMPHREY Ot 562.10 11/23/2014 ABBEY HUMPHREY Ot 571.8 11/23/2014 ABBEY HUMPHREY Ot 587 11/23/2014 ABBEY HUMPHREY Ot 569.9 11/23/2014 TATE SAEZ DO Ot V72.84 11/23/2014 TATE SAEZ DO Ot V72.84 02/18/2016 AMELIA OCAMPO DO Ot 621.9 DISORDER OF UTERUS NOS 02/18/2016 FENECH DO, AMELIA S Ot 625.9 FEM GENITAL SYMPTOMS NOS 02/18/2016 LAQUITA GRAY, ABBEY Malloy Ot 562.10 DIVERTICULOSIS COLON (W/O MENT OF HEMORR 02/18/2016 ABBEY HUMPHREY Ot 571.8 CHRONIC LIVER DIS NEC 02/18/2016 ABBEY HUMPHREY Ot 587 RENAL SCLEROSIS NOS 02/18/2016 ABBEY HUMPHREY Ot 569.9 INTESTINAL DISORDER NOS 02/18/2016 SAEZ DO, TATE D Ot V72.84 EXAM PRE-OPERATIVE NOS 02/18/2016 SAEZ DO, TATE D Ot V72.84 EXAM PRE-OPERATIVE NOS 02/18/2016 Ot M41.9 SCOLIOSIS, UNSPECIFIED 02/18/2016 DAMARIS STEVENS AMELIA S Ot 621.9 DISORDER OF UTERUS NOS 02/18/2016 BILLYECH DO, AMELIA S Ot 625.9 FEM GENITAL SYMPTOMS NOS 02/18/2016 ABBEY HUMPHREY Ot 562.10 DIVERTICULOSIS COLON (W/O MENT OF HEMORR 02/18/2016 ABBEY HUMPHREY Ot 571.8 CHRONIC LIVER DIS NEC 02/18/2016 ABBEY HUMPHREY Ot 587 RENAL SCLEROSIS NOS 02/18/2016 ABBEY HUMPHREY Ot 569.9 INTESTINAL DISORDER NOS 02/18/2016 SAEZ DO, TATE D Ot V72.84 EXAM PRE-OPERATIVE NOS 02/18/2016 SAEZ DO TATE D Ot V72.84 EXAM PRE-OPERATIVE NOS 02/18/2016 Ot M41.9 SCOLIOSIS, UNSPECIFIED 02/18/2016 DAMARIS STEVENS AMELIA S Ot 621.9 DISORDER OF UTERUS NOS 02/18/2016 DAMARIS DO, AMELIA S Ot 625.9 FEM GENITAL SYMPTOMS NOS 02/18/2016 ABBEY HUMPHREY Ot 562.10 DIVERTICULOSIS COLON (W/O MENT OF HEMORR 02/18/2016 ABBEY HUMPHREY Ot 571.8 CHRONIC LIVER DIS NEC 02/18/2016 ABBEY HUMPHREY Ot 587 RENAL SCLEROSIS NOS 02/18/2016 ABBEY HUMPHREY Ot 569.9 INTESTINAL DISORDER NOS 02/18/2016 SAEZ DO, TATE D Ot V72.84 EXAM PRE-OPERATIVE NOS 02/18/2016 SAEZ DO TATE D Ot V72.84 EXAM PRE-OPERATIVE NOS 02/18/2016 Ot M41.9 SCOLIOSIS, UNSPECIFIED 03/07/2016 Ot M41.9 SCOLIOSIS, UNSPECIFIED 03/07/2016 Ot M41.9 SCOLIOSIS, UNSPECIFIED 03/18/2016 Ot M41.9 SCOLIOSIS, UNSPECIFIED Procedures Code [place] [address] PSYCH DIAGNOSTIC EVALUATION 12/20/2013 96284 PSYTX PT&/FAMILY 45 MINUTES 01/18/2014 PHYSICAL PHYSICAL THERAPY, VIA [facility] 04/27/2014 50894 HEMOCCULT 05/02/2014 30766 BIOPSY SKIN LESION (SINGLE) 05/02/2014 77686 PAP SMEAR 05/02/2014 Obstetric [facility] 05/02/2014 Q0091 PAP SMEAR OBTAIN SMEAR 05/02/2014 68184 MAMMOGRAM, SCREENING 05/04/[address] ABDOMEN & PELVIS W/ & W/ O CONTRAST 06/16/2014 75764 ROUTINE VENIPUNCTURE 06/19/2014 [id number] GFR CALC (RESULT ONLY) 06/19/2014 02110 CMP 06/19/2014 76542 GASTROGRAFIN ENEMA 07/11/2014 TATE COKER 07/11/2014 57820 XRAY ABDOMEN, 1 VIEW (KUB) 08/01/2014 Results Test Result Range Lipid Panel - 07/18/16 10:03 Cholesterol, Total 188 mg/dL 100-199 Triglycerides 84 mg/dL 0-149 HDL Cholesterol 54 mg/dL >39 VLDL Cholesterol Gurpreet 17 mg/dL 5-40 LDL Cholesterol Calc 117 mg/dL 0-99 Hemoglobin A1c - 07/18/16 10:03 Hemoglobin A1c 5.9 % 4.8-5.6 CBC With Differential/Platelet - 07/07/17 08:49 WBC 4.1 x10E3/uL 3.4-10.8 RBC 4.63 x10E6/uL 3.77-5.28 Hemoglobin 14.1 g/dL 11.1-15.9 Hematocrit 43.3 % 34.0-46.6 MCV 94 fL 79-97 MCH 30.5 pg 26.6-33.0 MCHC 32.6 g/dL 31.5-35.7 RDW 14.3 % 12.3-15.4 Platelets 222 x10E3/uL 150-379 Neutrophils 46 % Lymphs 43 % Monocytes 8 % Eos 2 % Basos 1 % Neutrophils (Absolute) 1.9 x10E3/uL 1.4-7.0 Lymphs (Absolute) 1.8 x10E3/uL 0.7-3.1 Monocytes(Absolute) 0.3 x10E3/uL 0.1-0.9 Eos (Absolute) 0.1 x10E3/uL 0.0-0.4 Baso (Absolute) 0.0 x10E3/uL 0.0-0.2 Immature Granulocytes 0 % Immature Grans (Abs) 0.0 x10E3/uL 0.0-0.1 Comp. Metabolic Panel (14) - 07/07/17 08:49 Glucose, Serum 94 mg/dL 65-99 BUN 16 mg/dL 6-24 Creatinine, Serum 0.85 mg/dL 0.57-1.00 eGFR If NonAfricn Am 76 mL/min/1.73 >59 eGFR If Africn Am 88 mL/min/1.73 >59 BUN/Creatinine Ratio 19 9-23 Sodium, Serum 142 mmol/L 134-144 Potassium, Serum 4.4 mmol/L 3.5-5.2 Chloride, Serum 104 mmol/L 96-106 Carbon Dioxide, Total 25 mmol/L 18-29 Calcium, Serum 9.4 mg/dL 8.7-10.2 Protein, Total, Serum 6.3 g/dL 6.0-8.5 Albumin, Serum 4.0 g/dL 3.5-5.5 Globulin, Total 2.3 g/dL 1.5-4.5 A/G Ratio 1.7 1.2-2.2 Bilirubin, Total 0.4 mg/dL 0.0-1.2 Alkaline Phosphatase, S 58 IU/L 39-117 AST (SGOT) 14 IU/L 0-40 ALT (SGPT) 11 IU/L 0-32 Lipid Panel - 07/07/17 08:49 Cholesterol, Total 137 mg/dL 100-199 Triglycerides 62 mg/dL 0-149 HDL Cholesterol 63 mg/dL >39 VLDL Cholesterol Gurpreet 12 mg/dL 5-40 LDL Cholesterol Calc 62 mg/dL 0-99 Hemoglobin A1c - 07/07/17 08:49 Hemoglobin A1c 5.8 % 4.8-5.6 Thyroid [place] Profile - 07/07/17 08:49 TSH 2.090 uIU/mL 0.450-4.500 Encounters ACCT No. Visit Date/Time Discharge Status Pt. Type Provider Facility Loc./Unit Complaint [id number] 08/01/2014 14:41:00 08/01/2014 23:59:59 CLS Outpatient MADIHA PIMENTEL APRN [id number] 07/11/2014 13:45:00 07/11/2014 23:59:59 CLS Outpatient SANTOSH CASTRO DO Gerardo [id number] 06/19/2014 09:05:00 06/19/2014 23:59:59 CLS Outpatient SANTOSH CASTRO DO Gerardo [id number] 06/16/2014 11:32:00 06/16/2014 23:59:59 CLS Outpatient SANTOSH CASTRO DO Gerardo [id number] 05/02/2014 15:14:00 05/02/2014 23:59:59 CLS Outpatient GIGI SEVERINO APRN [id number] 05/02/2014 15:14:00 05/02/2014 23:59:59 CLS Outpatient GIGI SEVERINO APRN [id number] 04/27/2014 16:17:00 04/27/2014 23:59:59 CLS Outpatient GIGI SEVERINO APRN [id number] 01/17/2014 13:03:00 01/17/2014 23:59:59 CLS Outpatient NANCY VINCENT PHD [id number] 12/19/2013 15:04:00 12/19/2013 23:59:59 CLS Outpatient NANCY VINCENT PHD [id number] 07/19/2016 08:35:00 Document Registration [id number] 02/18/2016 14:31:00 02/18/2016 23:59:59 CLS Outpatient DARIEN WOLFE APRN [facility] RAD [id number] 09/19/2014 12:02:00 09/19/2014 15:07:00 DIS Outpatient TATE SAEZ DO [facility] [id number] 09/13/2014 07:25:00 09/13/2014 23:59:59 CLS Outpatient TATE SAEZ DO [facility] PREOP [id number] 08/23/2014 08:53:00 08/23/2014 23:59:59 CLS Outpatient TATE SAEZ DO [facility] PREOP [id number] 08/09/2014 09:20:00 08/09/2014 23:59:59 CLS Outpatient ABBEY HUMPHREY [facility] RAD [id number] 07/14/2014 18:31:00 07/14/2014 21:36:00 DIS Emergency ROMEO HIRAM Yo LAW ENFORCEMENT INSTRUCTOR [facility] ER [id number] 05/23/2014 15:28:00 06/21/2014 13:17:00 DIS Outpatient ABBEY HUMPHREY [facility] REHAB [id number] 06/20/2014 10:04:00 06/20/2014 23:59:59 CLS Outpatient ABBEY HUMPHREY [facility] RAD [id number] 06/02/2014 11:46:00 06/02/2014 23:59:59 CLS Outpatient AMELIA OCAMPO DO [facility] RAD [id number] 01/25/2016 09:25:00 Document Registration [id number] 05/03/2018 08:15:00 05/03/2018 23:59:59 [facility] [id number] 07/08/2017 12:08:00 Document Registration
--- NOTE | 2018-05-16 15:12 | ED Upper Extremity ---
General Chief Complaint: Upper Extremity Stated Complaint: BROKE ARM, HAS DEVELOP LUMP ON ARM Nursing Triage Note: AMBULATED TO ROOM 05 WEARING HER OWN SLING AND ICE PACK. STATES SHE WAS HERE THURSDAY AFTER FALLING AND CAUSING HER LEFT ARM TO BE BROKEN. STATES SHE HAS DEVELOPED BRUSING AND EDEMA/KNOT LOWER ARM THAT IS WORRISOME TO HER. Nursing Sepsis Screen: No Definite Risk Source: patient, spouse Exam Limitations: no limitations History of Present Illness Date Seen by Provider: May 16, 2018 Time Seen by Provider: 15:12 Initial Comments 57-year-old female patient presents to the emergency department with complaints of bruising and swelling to the distal anterior wrist that she noticed earlier today. Patient was seen in the emergency department on 05/13/18 for a proximal radial head fracture. Patient is scheduled to see Dr. Pearson on Thursday of this week. Onset: this morning Pain/Injury Location: left wrist Method of Injury: unknown Allergies and Home Medications Allergies Coded Allergies: Opioids - Morphine Analogues (Unverified Allergy, Unknown, 07/14/14) Pt states she is allergic to all opiates and synthetic opiates Opioids-Meperidine & Related (Unverified Allergy, Unknown, 07/14/14) Pt states she is allergic to all opiates and synthetic opiates, experiences full body pain Home Medications Trazodone Hcl 150 Mg Tablet, 150 MG PO HS PRN for SLEEP, (Reported) Patient Home Medication List Home Medication List Reviewed: Yes Constitutional: no symptoms reported Respiratory: no symptoms reported Cardiovascular: no symptoms reported Musculoskeletal: see HPI Skin: see HPI Psychiatric/Neurological: No Symptoms Reported All Other Systems Reviewed Negative Unless Noted: Yes (Negative excepted noted.) Past Szlvuwn-Xdewxk-Abiiqh Hx Past Med/Social Hx: Reviewed Nursing Past Med/Soc Hx Patient Social History Drug of Choice: MJ Recent Foreign Travel: No Contact w/Someone Who Travel: No Recent Infectious Disease Expo: No Past Medical History Surgeries: Yes (gallstones) Respiratory: No Cardiac: No High Cholesterol, Hypertension Neurological: No Genitourinary: No Gastrointestinal: Yes Diverticulosis Musculoskeletal: Yes Fractures, Gout Endocrine: Yes Diabetes, Non-Insulin dep HEENT: No Cancer: No Psychosocial: Yes Sleep Difficulties Integumentary: No Blood Disorders: No Adverse Reaction/Blood Tranf: No Family Medical History Reviewed Nursing Family Hx No Pertinent Family Hx Physical Exam Vital Signs Vital Signs - First Documented 05/16/18 14:40 Temp 98.0 Pulse 78 Resp 16 B/P (MAP) 112/76 (88) Pulse Ox 98 O2 Delivery Room Air Capillary Refill : Less Than 3 Seconds Height, Weight, BMI Height: 5'8.00" Weight: 158lbs. oz. 71.275361fr; BMI Method:Stated General Appearance: WD/WN, no apparent distress Cardiovascular: normal peripheral pulses, regular rate, rhythm, no murmur Respiratory: lungs clear, normal breath sounds, no respiratory distress, no accessory muscle use Shoulder: normal inspection, non-tender, no evidence of injury, normal ROM Elbow/Forearm: Left, bone tenderness, ecchymosis (medial left elbow), limited ROM, pain, soft tissue tenderness, swelling Wrist: Yes ecchymosis (2x3 cm area of faint green ecchymosis with minimal swelling to the left anterior wrist without tenderness. full ROM noted to the left wrist. no deformity noted. ) Hand: normal inspection, non-tender, no evidence of injury, normal ROM, Left Neurologic/Tendon: normal sensation, normal motor functions, normal tendon functions, no evidence tendon injury Neurologic/Psychiatric: no motor/sensory deficits, alert, normal mood/affect, oriented x 3 Skin: normal color, warm/dry, ecchymosis (2x3 cm area of faint green ecchymosis with minimal swelling to the left anterior wrist without tenderness. medial left elbow ecchymosis. ) Progress/Results/Core Measures Results/Orders Vital Signs/I&O 05/16/18 05/16/18 14:40 15:54 Temp 98.0 98.0 Pulse 78 78 Resp 16 16 B/P (MAP) 112/76 (88) 112/76 (88) Pulse Ox 98 98 O2 Delivery Room Air Blood Pressure Mean: 88 Departure Communication (Admissions) Patient seen and evaluated. Denies any injuries occurring after the left elbow fracture incident. I discussed with the patient that the distal left wrist findings are related to a contusion. No bony tenderness or soft tissue tenderness noted. Patient placed in the arm sling and instructed to follow-up with Dr. Pearson as previously scheduled. She'll continue all medications and instructions as per her previous ED visit. Patient to return for worsened symptoms or any other concerns. Impression Primary Impression: Contusion of wrist Qualified Codes: S60.212A - Contusion of left wrist, initial encounter Additional Impression: Radial head fracture, closed Qualified Codes: S52.125D - Nondisplaced fracture of head of left radius, subsequent encounter for closed fracture with routine healing Disposition: 01 HOME, SELF-CARE Condition: Improved Departure-Patient Inst. Decision time for Depature: 15:31 Referrals: DARIEN WOLFE APRN (PCP) Primary Care Physician Patient Instructions: Contusion (DC) Add. Discharge Instructions: All discharge instructions reviewed with patient and/or family. Voiced understanding. Continue all medications and orders as instructed by Dr. Lui. Follow-up with Dr. Pearson as previously scheduled. Return to the emergency department for worsened symptoms or any other concerns. ESAU REES May 16, 2018 15:12
[2018-05-16 15:54] VITALS: BP 112/76
== END 2018-05-16 14:40 ==
LOC: EDUNIT# 14:18 → ER 14:21
DX: S52.122A Displaced fracture of head of left radius, initial encounter for closed fracture (principal); E78.00 Pure hypercholesterolemia, unspecified; I10 Essential (primary) hypertension; M10.9 Gout, unspecified; E11.9 Type 2 diabetes mellitus without complications; Z87.19 Personal history of other diseases of the digestive system; Z88.5 Allergy status to narcotic agent; Z87.442 Personal history of urinary calculi; W19.XXXA Unspecified fall, initial encounter
CPT/HCPCS: 99282